=== PATIENT | male | born 1935 | race Caucasian/White ===

== ENCOUNTER 2016-10-27 07:31 | Day surgery (SDC) | payer MEDICARE, BC ==
[~2016-10-27] VITALS: Ht 182.9 cm; Wt 74.8 kg
[~2016-10-27 07:31] MED LIST: AMLO10TA2 PO; ASPI81CH CHEW; HYDR50TA15 PO; LACT PO; LEVA500T PO; LEVEMIR SQ; METO25TA3 PO; PANT40TA3 PO; PLAV75TA29 PO; PRIM50 PO; RENATAB6 PO; SEVEL800 PO; VANC1000P IV
[2016-10-27] MEDS ORDERED: SODIUM BICARBONATE 100 MEQ in D5W 1000 ML IV SCH (08:15)
[2016-10-27] MEDS ORDERED: SODIUM CHLORIDE 0.9% FLUSH 5 ML FLUSH IV FLUSH PRN (08:15)
[2016-10-27 08:30] VITALS: BP 148/67; PULSE 83; RESP 18; TEMP 98.3; O2SAT 93
[2016-10-27 08:40] LABS: BASOPHIL % 0.4 % (0.0-2.0); EOSINOPHIL # 0.2 TH/MM3 (0-0.4); EOSINOPHIL % 2.3 % (0.0-4.0); HEMATOCRIT 26.9 % (39.0-51.0); HEMO FLAGS DIFF FINAL; LYMPH % 5.9 % (9.0-44.0); LYMPHOCYTE # 0.6 TH/MM3 (1.0-4.8); MEAN CELL VOLUME 91.2 FL (80.0-100.0); MEAN CORPUSCULAR HEMOGLOBIN 30.9 PG (27.0-34.0); MEAN CORPUSCULAR HGB CONC 33.9 % (32.0-36.0); MONO % 5.9 % (0.0-8.0); NEUT % 85.5 % (16.0-70.0); PLATELET COUNT 256 TH/MM3 (150-450); RED BLOOD COUNT 2.95 MIL/MM3 (4.50-5.90); RED CELL DISTRIBUTION WIDTH 16.7 % (11.6-17.2); WHITE BLOOD COUNT 10.6 TH/MM3 (4.0-11.0)
[2016-10-27] MEDS ORDERED: NOVOLOGP2 SQ (08:56)
[2016-10-27 08:57] LABS: BICARBONATE 30.8 MEQ/L (21.0-32.0); POTASSIUM 4.1 MEQ/L (3.5-5.1)
[2016-10-27] MEDS ORDERED: HYDR25TA35 PO (08:57)
[2016-10-27] MEDS ORDERED: SODIUM CHLORIDE 0.9% FLUSH 5 ML FLUSH IV FLUSH SCH (09:00)
[2016-10-27 09:15] LABS: APTT (PATIENT) 24.9 SEC (24.3-30.1); INTERNATIONAL NORMALIZED RATIO 1.1 RATIO; PROTHROMBIN TIME - PATIENT 11.9 SEC (9.8-11.6)
[2016-10-27] MEDS ORDERED: IOHEXOL 350 MG/ML 100 ML BTL (for Cath Lab) OTHER ONE (10:52)
[2016-10-27] MEDS ORDERED: MIDAZOLAM HCL 2 MG/2 ML VIAL ONE ×2 (11:07→11:54)
[2016-10-27] MEDS ORDERED: HEPARIN-NS/PF INJ 500 ML ONE (11:07)
[2016-10-27] MEDS ORDERED: NITROGLYCERIN INJ 5 ML ONE ×2 (11:45→11:54)
[2016-10-27] MEDS ORDERED: HEPARIN SODIUM - IV 10,000 UNITS/10 ML VIAL ONE (11:45)
[2016-10-27] MEDS ORDERED: VERAPAMIL HCL 5 MG/2 ML VIAL ONE (11:54)
[2016-10-27] MEDS ORDERED: PROTAMINE SULFATE 50 MG/5 ML VIAL ONE (12:29)
[2016-10-27] MEDS ORDERED: LIDOCAINE HCL 1% PF 30 ML VIAL ONE (12:36)
--- NOTE | 2016-10-27 12:49 | HHI.PR ---
Immediate Post Op Note Procedure Date: Oct 27, 2016 Pre Op Diagnosis: (1) Diabetic infection of right foot right heel gangrene. Post Op Diagnosis: (1) Diabetic infection of right foot Surgeon: Myles Isbell Piping Drafter(s): walter Procedure: NA Findings: Right popliteal artery high grade stenosis with single vessel peroneal artery runoff. Additional Information: NA Complications: None Specimen(s) removed: NA Estimated blood loss: minimal Anesthesia: Other (moderate sedation.) Drains: None Fluids: NS and NAHCO3 IVF (ns) Tourniquet time (min at mmHg) NA Patient to: PACU Patient Condition: Good Implant/Devices: Other Date/Time of Procedure: Other Myles Isbell DO Oct 27, 2016 12:49
--- NOTE | 2016-10-27 18:04 | MA ---
cc: MARTIR MENDOZA DATE 10/27/2016 PREOPERATIVE DIAGNOSIS Critical limb ischemia left lower extremity with heel ulceration. POSTOPERATIVE DIAGNOSIS Critical limb ischemia left lower extremity with heel ulceration. PROCEDURES 1. Aortogram. 2. Pelvic oblique arteriogram. 3. Selective right lower extremity arteriogram. 4. Duplex ultrasound for access. 5. Balloon angioplasty of right popliteal artery lesion high-grade stenosis with a nonhealing wound. SEDATION Moderate. IV FLUIDS 300 mL of crystalloid ESTIMATED BLOOD LOSS Minimal URINE OUTPUT Not calculated. COMPLICATIONS None. DISPOSITION Docu. PROCEDURE The patient's bilateral groins were prepped and draped in a sterile fashion. I got access to the left common femoral artery using duplex ultrasound. Using Seldinger technique I placed a 4-[place] micropuncture catheter and then I exchanged using a 5-[place] sheath. I advanced an Omni flush catheter over a stiff angled Glidewire into the abdominal aorta. I shot an AP aortogram. I pulled my catheter down to the distal abdominal aorta. I shot pelvic oblique arteriograms. I selected out the right lower extremity external iliac artery and shot a selective right lower extremity arteriogram. My findings were that the abdominal aorta was widely patent. The bilateral renal arteries were widely patent. The left common internal and external iliac arteries were patent. The left common femoral, proximal SFA and profunda femoral arteries were patent. The right common internal, external arteries were widely patent. The right common femoral artery was patent. The right profunda femoral artery was patent and the right superficial femoral artery had some mild multi focal disease distally. The patient had a high-grade right popliteal artery calcified popliteal artery lesion. This was a short segment lesion at the knee joint. Below the level of the knee was single-vessel runoff through the peroneal artery that reconstituted the distal posterior tibial artery and dorsalis pedis artery. The ___ was exchanged for a 6-[place] Citizen 45 cm Destination sheath over an angled Glidewire and across the right popliteal lesion with a Quick-Cross catheter and stiff angled glide wire. I then exchanged for a 0.14 Viper wire and then used a 1.5 tip CSI atherectomy device to perform the atherectomy across the right popliteal artery. I performed balloon angioplasty with a 4 cm x 6 mm balloon. Afterwards there was improved blood flow across right popliteal artery through a single-vessel runoff through the peroneal artery. During the period of the atherectomy I did inject approximately a total of 700 mcg of nitroglycerine. After performing the atherectomy and balloon angioplasty, there was complete resolution of the right popliteal artery lesion. There was still single-vessel runoff through the peroneal artery. We then exchanged for a 6-[place] Citizen short sheath and once the ACT was less than 200 we pulled the sheath out the left groin. The patient tolerated the procedure well. DO LAMAR Silva/SUSANNA /12:27 PM /5:38 PM
== END 2016-10-27 18:36 | disposition home or self-care (01) ==
LOC: HDOC 07:31 → HDIC 07:32 → HDOC 18:36
PROVIDERS: ATTEND Surgery
DX: I70.234 Atherosclerosis of native arteries of right leg with ulceration of heel and midfoot (principal); I12.9 Hypertensive chronic kidney disease with stage 1 through stage 4 chronic kidney disease, or unspecified chronic kidney disease; N18.9 Chronic kidney disease, unspecified; E11.9 Type 2 diabetes mellitus without complications; Z79.4 Long term (current) use of insulin
CPT/HCPCS: 37225; 75625; 75710; 80048; 85002; 85025; 85347; 85610; 85730; C1714; C1725; C1751; C1769; C1887; C1893; J1644; J2250; J2720; J3010; Q9967

== ENCOUNTER 2016-10-30 16:23 | Inpatient (IN) | payer MEDICARE, BC ==
[~2016-10-30] VITALS: Ht 182.9 cm; Wt 75.1 kg
[~2016-10-30 16:23] MED LIST changes: +HYDR25TA35 PO; -HYDR50TA15 PO; -LACT PO; -LEVA500T PO; +NOVOLOGP2 SQ; -PANT40TA3 PO; -RENATAB6 PO; -SEVEL800 PO; -VANC1000P IV
[2016-11-03] MEDS: SODIUM CHLORID 0.9% 500 ML IV SCH (08:15)
[2016-11-03] MEDS ORDERED: LACTATED RINGER'S 1000 ML IV SCH (08:15)
[2016-11-03] MEDS ORDERED: METOPROLOL TARTRATE 25 MG TAB PO PRN (08:15)
[2016-11-03] MEDS ORDERED: INSULIN HUMAN REGULAR 1,000 UNITS/10 ML VIAL SQ PRN (08:15)
[2016-11-03] MEDS ORDERED: POTA10CA PO (08:24)
[2016-11-03] MEDS ORDERED: MULT1TAB84 PO (08:24)
[2016-11-03] MEDS ORDERED: BUME1TAB26 PO (08:24)
[2016-11-03] MEDS ORDERED: PANT40TA3 PO (08:24)
[2016-11-03] MEDS ORDERED: SEVEL800 PO (08:24)
[2016-11-03] MEDS ORDERED: VITA10007 PO (08:24)
[2016-11-03] MEDS ORDERED: INFALIQ PO (08:24)
[2016-11-03] MEDS ORDERED: NEPHTAB3 PO (08:25)
[2016-11-03 08:29] LABS: AUTOMATED NEUTROPHIL # 14.9 TH/MM3 (1.8-7.7); BASOPHIL % 0.3 % (0.0-2.0); EOSINOPHIL # 0.1 TH/MM3 (0-0.4); EOSINOPHIL % 0.6 % (0.0-4.0); HEMATOCRIT 22.9 % (39.0-51.0); HEMO FLAGS DIFF FINAL; LYMPH % 2.6 % (9.0-44.0); LYMPHOCYTE # 0.4 TH/MM3 (1.0-4.8); MEAN CELL VOLUME 89.3 FL (80.0-100.0); MEAN CORPUSCULAR HGB CONC 33.5 % (32.0-36.0); MONO % 5.9 % (0.0-8.0); NEUT % 90.6 % (16.0-70.0); PLATELET COUNT 272 TH/MM3 (150-450); RED BLOOD COUNT 2.57 MIL/MM3 (4.50-5.90); RED CELL DISTRIBUTION WIDTH 16.8 % (11.6-17.2); WHITE BLOOD COUNT 16.4 TH/MM3 (4.0-11.0)
[2016-11-03 08:34] VITALS: BP 144/68; PULSE 89; RESP 24; TEMP 99.8; O2SAT 93
[2016-11-03] MEDS ORDERED: BACT800T5 PO (08:43)
[2016-11-03] MEDS ORDERED: BENA25TA3 PO (08:44)
[2016-11-03 08:50] LABS: ALT (GPT) 17 U/L (12-78); ANION GAP 10 MEQ/L (5-15); AST (GOT) 9 U/L (15-37); BICARBONATE 30.3 MEQ/L (21.0-32.0); BLOOD UREA NITROGEN 36 MG/DL (7-18); CHLORIDE 100 MEQ/L (98-107); GLOMERULAR FILTRATION RATE 8 ML/MIN (>89); POTASSIUM 3.6 MEQ/L (3.5-5.1); SODIUM (NA) 140 MEQ/L (136-145)
[2016-11-03 08:53] LABS: ALKALINE PHOSPHATASE 66 U/L (45-117); TOTAL BILIRUBIN ADULT 0.4 MG/DL (0.2-1.0)
[2016-11-03] MEDS ORDERED: FUROSEMIDE 20 MG/2 ML VIAL IV ONE (09:30)
--- NOTE | 2016-11-03 09:50 | RADRPT ---
EXAM DATE/TIME: 11/03/2016 08:06 [place] COMPARISON: CHEST SINGLE AP, October 04, 2016, 3:48. INDICATIONS : Evaluate for pneumonia, pneumothorax or communicable disease. Pre-op for above the knee amputation. MEDICAL HISTORY : Hypertension. Congestive heart failure. Renal disease, end stage. Stroke. Diabetes Mellitus. Smok er. Prostate cancer. SURGICAL HISTORY : None. ENCOUNTER: Initial ACUITY: 1 day PAIN SCORE: 0/10 LOCATION: Bilateral chest FINDINGS: A single view of the chest demonstrates interval worsening in the radiographic appearance of the ches t with prominent interstitial markings and possible developing bilateral pleural effusions. Heart siz e is prominent and the lungs are hypoinflated. Atherosclerotic calcification and uncoiling of the aor tic arch. Osseous structures are intact. CONCLUSION: Spectrum of findings characteristic of developing CHF since the September 2016 exam. Milad Tamez MD on November 03, 2016 at 9:47 Board Certified Radiologist. This report was verified electronically.
[2016-11-03] MEDS ORDERED: BUPIVACAINE/EPINEPHRINE 0.5% 50 ML VIAL ONE (09:55)
[2016-11-03] MEDS ORDERED: ceFAZolin INJ 1,000 MG VIAL ONE (09:55)
[2016-11-03] MEDS ORDERED: THROMBIN (TOPICAL) 5,000 UNIT VIAL ONE (09:56)
[2016-11-03] MEDS ORDERED: KETAMINE HCL 500 MG/5 ML VIAL ONE (10:16)
[2016-11-03] MEDS ORDERED: MIDAZOLAM HCL 2 MG/2 ML VIAL ONE ×2 (10:23→12:15)
[2016-11-03] MEDS ORDERED: FAMOTIDINE 20 MG/2 ML VIAL ONE (10:23)
--- NOTE | 2016-11-03 10:36 | PD.VS.PN ---
Pre-operative Note Pre-operative diagnosis: Ishemic tissue changes to left BKA stump. C. diff Colitis. Planned procedure: left bka revision vs AKA. Labs: Laboratory Tests Test 11/03/16 11/03/16 11/03/16 08:04 09:24 09:30 White Blood Count 16.4 Red Blood Count 2.57 Hemoglobin 7.7 Hematocrit 22.9 Mean Corpuscular Volume 89.3 Mean Corpuscular Hemoglobin 30.0 Mean Corpuscular Hemoglobin 33.5 Concent Red Cell Distribution Width 16.8 Platelet Count 272 Mean Platelet Volume 8.5 Neutrophils (%) (Auto) 90.6 Lymphocytes (%) (Auto) 2.6 Monocytes (%) (Auto) 5.9 Eosinophils (%) (Auto) 0.6 Basophils (%) (Auto) 0.3 Neutrophils # (Auto) 14.9 Lymphocytes # (Auto) 0.4 Monocytes # (Auto) 1.0 Eosinophils # (Auto) 0.1 Basophils # (Auto) 0.0 CBC Comment DIFF FINAL Differential Comment Sodium Level 140 Potassium Level 3.6 Chloride Level 100 Carbon Dioxide Level 30.3 Anion Gap 10 Blood Urea Nitrogen 36 Creatinine 6.44 Estimat Glomerular Filtration 8 Rate Random Glucose 153 Calcium Level 8.8 Total Bilirubin 0.4 Aspartate Amino Transf 9 (AST/SGOT) Alanine Aminotransferase 17 (ALT/SGPT) Alkaline Phosphatase 66 Total Protein 6.4 Albumin 2.7 Blood Type A POSITIVE A POSITIVE A POSITIVE Antibody Screen NEGATIVE Blood Bank Comment Crossmatch Leukocyte-Reduced Red Blood Cells Blood: Type and cross 2 units prbcs Imaging: Last 48 hours Impressions Chest X-Ray 11/03/16 0000 Signed Impressions: Service Date/Time: Thursday, November 03, 2016 08:06 - CONCLUSION: Spectrum of findings characteristic of developing CHF since the September 2016 exam. Milad Tamez MD Post-operative destination: IM with Dr. Lagunas, Patient with multiple medical problems including PRE-hospitalization diagnosed C.Diff. Operative site marked: Yes Consent: Informed consent has been obtained from Cullen Rai Jr. I have explained the procedure in detail and discussed the risks, benefits, and potential complications. All questions have been answered. Myles Isbell DO Nov 03, 2016 10:24
[2016-11-03] MEDS ORDERED: VANCOMYCIN HCL 1000 MG VIAL ONE (11:11)
[2016-11-03] MEDS ORDERED: VANCOMYCIN HCL 1000 MG VIAL OTHER ONE (11:15)
[2016-11-03] MEDS ORDERED: BUPIVACAINE HCL PF 0.5% 30 ML VIAL NB ONE (11:30)
[2016-11-03] MEDS ORDERED: SODIUM CHLOR 0.9% 250 ML INJ 250 ML IV ONE (12:00)
[2016-11-03] MEDS ORDERED: PROPOFOL 200 MG/20 ML AMP IV ONE (12:00)
[2016-11-03] MEDS ORDERED: SODIUM CHLORID 0.9% 500 ML INJ 500 ML IV ONE (12:00)
[2016-11-03] MEDS ORDERED: LACTATED RINGER'S 1000 ML INJ IV SCH (13:00)
[2016-11-03] MEDS ORDERED: MORPHINE SULFATE 4 MG/ML INJ IV PRN ×2 (13:00)
[2016-11-03] MEDS ORDERED: DO NOT ADM ANY ANTICOAGULANT DRUGS XX PRN (13:00)
[2016-11-03] MEDS ORDERED: MAGNESIUM SULFATE 1 GM/100 ML IV PRN (13:00)
[2016-11-03] MEDS ORDERED: POTASSIUM PHOSPHATE 21 MMOL/NS 250 ML IV PRN ×2 (13:00)
[2016-11-03] MEDS ORDERED: POTASSIUM CHLOR 20 MEQ 100 ML x 2 BAGS IV PRN (13:00)
[2016-11-03] MEDS ORDERED: POTASSIUM CHLOR 20 MEQ/100 ML x 1 BAG IV PRN (13:00)
[2016-11-03] MEDS ORDERED: ONDANSETRON HCL 4 MG/2 ML VIAL IV PUSH PRN (13:00)
[2016-11-03] MEDS ORDERED: ACETAMINOPHEN/HYDROcodone 325 MG/5 MG TAB PO PRN (13:00)
[2016-11-03] MEDS ORDERED: ACETAMINOPHEN 325 MG TAB PO PRN ×2 (13:30→19:15)
[2016-11-03] MEDS ORDERED: oxyCODONE/ACETAMINOPHEN 5 MG/325 MG TAB PO PRN (13:30)
[2016-11-03] MEDS ORDERED: BISACODYL 10 MG SUPP PR PRN (13:30)
[2016-11-03] MEDS ORDERED: NALOXONE HCL 0.4 MG/ML AMP IV PRN (13:30)
[2016-11-03] MEDS ORDERED: HYDROmorphone HCL PF 1 MG/ML VIAL IV PUSH PRN (13:30)
[2016-11-03] MEDS ORDERED: SODIUM CHLORIDE 0.9% FLUSH 5 ML FLUSH FLUSH PRN (13:30)
[2016-11-03] MEDS ORDERED: ONDANSETRON HCL 4 MG/2 ML VIAL IVP PRN (13:30)
[2016-11-03] MEDS ORDERED: MAGNESIUM HYDROXIDE SUSP 30 ML CUP PO PRN (13:30)
[2016-11-03 16:00] VITALS: BP 161/68; PULSE 84; RESP 19; TEMP 97.4; O2SAT 90
--- NOTE | 2016-11-03 18:18 | HHI.PR ---
Immediate Post Op Note Procedure Date: Nov 03, 2016 Pre Op Diagnosis: (1) PVD (peripheral vascular disease) Post Op Diagnosis: (1) PVD (peripheral vascular disease) Surgeon: Myles Isbell Winch Derrick Operator(s): Javier Berkowitz Procedure: Left AKA Findings: Clean tissue above the knee with negative gram stain of fluid at bone marrow level. Additional Information: C diff toxin from stool sample from nursing facility 10/31/2016. Complications: none Specimen(s) removed: left residual leg. Estimated blood loss: 50 cc Anesthesia: MAC, Regional Block, Local Drains: None Fluids: 500 cc IVF (250), PRBC (250) Patient to: PACU Patient Condition: Good Implant/Devices: SEE IMPLANT LOG (if applicable) (NA) Date/Time of Procedure: SEE SURGICAL CARE RECORD Myles Isbell DO Nov 03, 2016 18:18
[2016-11-03] MEDS ORDERED: GLUCAGON 1 MG/ML VIAL OTHER PRN (18:45)
[2016-11-03] MEDS ORDERED: DEXTROSE 50% IN WATER 50 ML VIAL(D50) IV PUSH PRN (18:45)
[2016-11-03] MEDS ORDERED: SODIUM CHLOR 0.9% 1000 ML INJ 1,000 ML IV PRN ×3 (19:14)
[2016-11-03] MEDS ORDERED: HEPARIN SODIUM - IV 10,000 UNITS/10 ML VIAL IVF PRN (19:15)
[2016-11-03] MEDS ORDERED: ONDANSETRON HCL 4 MG/2 ML VIAL IV PRN (19:15)
[2016-11-03] MEDS ORDERED: HEPARIN SODIUM - IV 10,000 UNITS/10 ML VIAL PRN (19:15)
[2016-11-03] MEDS ORDERED: NITROGLYCERIN 0.4 MG SL 25 TABS/BTL SL PRN (19:15)
[2016-11-03] MEDS ORDERED: ALBUMIN HUMAN 25% 25 GM/100 ML BAGP IV PRN (19:15)
[2016-11-03] MEDS ORDERED: cloNIDine HCL 0.1 MG TAB PO PRN (19:15)
[2016-11-03] MEDS ORDERED: MANNITOL 12.5 GM/50 ML VIAL IV PRN (19:15)
[2016-11-03] MEDS ORDERED: GELATIN 12 MM/7 MM FOAM TOP PRN (19:15)
[2016-11-03] MEDS ORDERED: SODIUM CHLORIDE 0.9% FLUSH 5 ML FLUSH IVF PRN (19:15)
[2016-11-03] MEDS ORDERED: GENTAMICIN SULFATE (DIALYSIS USE ONLY) 20 MG/2 ML VIAL IV PRN (19:15)
[2016-11-03] MEDS ORDERED: diphenhydrAMINE HCL 25 MG CAP PO PRN (19:15)
--- NOTE | 2016-11-03 19:16 | HHI.HP ---
[facility]Staff Admission Diagnosis C. difficile, BKA stump redo Diagnoses: Chief Complaint: C. 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 Recently discharged from [facility] 10/08/16, post left BKA. He went to [facility]. His BKA wound has not healed well and developed cellulitis and some necrosis. He was started on Bactrim. He developed diarrhea a week ago and now he is positive for C. difficile. Patient today status post left AKA done by Dr. Isbell. Patient seen today. Daughter at the bedside. Reports he is doing well. On 2 L nasal cannula. Reports he started having diarrhea since last week. Right heel wound with necrotic tissue, improved according to daughter. Denies pain and discomfort. Denies SOB/ dyspnea. Denies chest pain, palpitations, headaches, dizziness. Denies fevers, chills, n/v. Denies abdominal cramping, bloating. Chest x-ray showed spectral findings characteristic of developing CHF since the September 2016 exam. Labs reviewed. WBC 16.4, H&H 7.7/22.9. B UN 36, creatinine 6.44 - end-stage renal disease on hemodialysis. Review of Systems Other Negative except for what is noted on history of present illness. Past Family Social History Past Medical History End-stage renal disease Insulin-dependent diabetes mellitus Peripheral vascular disease Ischemic left foot History of prostate cancer History of CVA in 1987 Multiple TIAs Past Surgical History Left BKA 09/16/16 AV fistula Right eye cataract surgery Tonsillectomy Allergies: Coded Allergies: No Known Allergies (Unverified , 11/03/16) Active Ordered Medications Current Medications Medications (Trade) Dose Ordered Sig/Gavin Route Start Time Stop Time Status Last Admin (NS 500 ml Inj) 500 ml @ 30 mls/hr [id number] IV 11/03/16 08:15 11/04/16 08:14 Miscellaneous Information ALL NURSING DEPARTME... UNSCH PRN XX 11/03/16 13:00 11/04/16 12:59 Lactated Ringer's 1,000 ml @ 125 mls/hr Q8H IV 11/03/16 13:00 11/03/16 20:59 Potassium Chloride 100 ml @ 50 mls/hr Q2H PRN IV 11/03/16 13:00 Potassium Chloride 100 ml @ 50 mls/hr UNSCH PRN IV 11/03/16 13:00 Potassium Phosphate 21 mmol/ Sodium Chloride 257 ml @ 41.7 mls/hr UNSCH PRN IV 11/03/16 13:00 (Magnesium Sulfate 1 Gm Premix) 200 ml @ 100 mls/hr UNSCH PRN IV 11/03/16 13:00 (Zofran Inj) 4 mg Q6H PRN IV PUSH 11/03/16 13:00 ([place] 5-325 Mg) 1 tab Q4H PRN PO 11/03/16 13:00 (Roxicodone) 7.5 mg Q4H PRN PO 11/03/16 13:00 (Morphine Inj) 2 mg Q4H PRN IV 11/03/16 13:00 (Morphine Inj) 4 mg Q1H PRN IV 11/03/16 13:00 (NS Flush) 2 ml UNSCH PRN FLUSH 11/03/16 13:30 (NS Flush) 2 ml BID FLUSH 11/03/16 21:00 (Tylenol) 650 mg Q4H PRN PO 11/03/16 13:30 (Zofran Inj) 4 mg Q6H PRN IVP 11/03/16 13:30 (Dulcolax Supp) 10 mg DAILY PRN [place] 11/03/16 13:30 (Milk Of Magnesia Liq) 30 ml Q12H PRN PO 11/03/16 13:30 (Narcan Inj) 0.4 mg UNSCH PRN IV 2/6/17 13:30 (Percocet 5-325 Mg) 1 tab Q6H PRN PO 11/03/16 13:30 (Dilaudid Pf Inj) 0.5 mg Q4H PRN IV PUSH 11/03/16 13:30 Family History COPD Social History Quit smoking in 1987. Denies alcohol use. Denies illicit drug use. Physical Exam Vital Signs Vital Signs Date Time Temp Pulse Resp B/P Pulse Ox O2 Delivery O2 Flow Rate FiO2 11/03/16 16:00 97.4 84 19 161/68 90 11/03/16 15:34 98.9 80 13 140/59 99 Nasal Cannula 2 11/03/16 15:00 78 14 138/67 97 Nasal Cannula 2 11/03/16 14:00 76 12 144/66 99 Nasal Cannula 2 11/03/16 13:30 72 19 134/63 97 Nasal Cannula 2 11/03/16 13:15 73 20 127/56 97 Nasal Cannula 2 11/03/16 13:00 72 19 125/53 98 Nasal Cannula 2 11/03/16 12:45 71 17 121/57 97 Nasal Cannula 2 11/03/16 12:30 70 16 115/53 99 Nasal Cannula 2 11/03/16 12:25 99.2 69 15 111/53 99 Simple Mask 6 11/03/16 08:34 99.8 89 24 144/68 93 Physical Exam GENERAL: This is a thinly appearing, well-developed patient, in no apparent distress. SKIN: No rashes, ecchymoses or lesions. Cool and dry. HEAD: Atraumatic. Normocephalic. No temporal or scalp tenderness. EYES: Pupils equal round and reactive. Extraocular motions intact. No scleral icterus. No injection or drainage. ENT: Nose without bleeding. Throat without erythema. Uvula midline. Airway patent. NECK: Trachea midline. No JVD or lymphadenopathy. Supple, nontender, no meningeal signs. CARDIOVASCULAR: Regular rate and rhythm without murmurs, gallops, or rubs. RESPIRATORY: Diminished bases. No wheezes, rales, or rhonchi. On 2 L nasal cannula. GASTROINTESTINAL: Abdomen soft, non-tender, nondistended. No hepato-splenomegaly , or palpable masses. No guarding. MUSCULOSKELETAL: Extremities without clubbing, cyanosis, or edema. Left AKA with dressing CDI, right heel wound with necrotic tissue surrounding the area. NEUROLOGICAL: Awake and alert. Forgetful. Motor and sensory grossly within normal limits. Normal speech. Laboratory Laboratory Tests Test 11/03/16 11/03/16 11/03/16 08:04 09:24 09:30 White Blood Count 16.4 Red Blood Count 2.57 Hemoglobin 7.7 Hematocrit 22.9 Mean Corpuscular Volume 89.3 Mean Corpuscular Hemoglobin 30.0 Mean Corpuscular Hemoglobin 33.5 Concent Red Cell Distribution Width 16.8 Platelet Count 272 Mean Platelet Volume 8.5 Neutrophils (%) (Auto) 90.6 Lymphocytes (%) (Auto) 2.6 Monocytes (%) (Auto) 5.9 Eosinophils (%) (Auto) 0.6 Basophils (%) (Auto) 0.3 Neutrophils # (Auto) 14.9 Lymphocytes # (Auto) 0.4 Monocytes # (Auto) 1.0 Eosinophils # (Auto) 0.1 Basophils # (Auto) 0.0 CBC Comment DIFF FINAL Differential Comment Sodium Level 140 Potassium Level 3.6 Chloride Level 100 Carbon Dioxide Level 30.3 Anion Gap 10 Blood Urea Nitrogen 36 Creatinine 6.44 Estimat Glomerular Filtration 8 Rate Random Glucose 153 Calcium Level 8.8 Total Bilirubin 0.4 Aspartate Amino Transf 9 (AST/SGOT) Alanine Aminotransferase 17 (ALT/SGPT) Alkaline Phosphatase 66 Total Protein 6.4 Albumin 2.7 Blood Type A POSITIVE A POSITIVE A POSITIVE Antibody Screen NEGATIVE Blood Bank Comment Crossmatch Leukocyte-Reduced Red Blood Cells Date/Time Procedure Status Source Growth 11/03/16 11:33 Gram Stain - Final Resulted Wound Other 11/03/16 11:33 Wound Culture Resulted Wound Other Pending 11/03/16 11:33 Fungal Smear - Final Resulted Wound Other NO FUNGAL ELEMENTS SEEN. 11/03/16 11:33 Fungal Culture Resulted Wound Other Pending 11/03/16 11:33 Acid Fast Stain Received Wound Other Pending 11/03/16 11:33 Mycobacterial Culture Received Wound Other Pending Result Diagram: 11/03/16 0804 11/03/16 08 Assessment and Plan Problem List: (1) GERD (gastroesophageal reflux disease) ICD Code: K21.9 Status: Chronic (2) ESRD (end stage renal disease) ICD Code: N18.6 Status: Chronic (3) Diabetes mellitus ICD Code: E11.9 Status: Chronic (4) Impaired mobility and activities of daily living ICD Code: Z74.09 Status: Acute (5) Diabetic infection of right foot ICD Code: E11.69 Status: Acute (6) PVD (peripheral vascular disease) ICD Code: I73.9 Status: Chronic (7) Status post above knee amputation of left lower extremity ICD Code: Z89.612 Status: Acute (8) HTN (hypertension) ICD Code: I10 Status: Chronic (9) Anemia ICD Code: D64.9 Status: Acute Assessment and Plan Patient is an 80-year-old male with primary medical history of insulin- dependent diabetes, end-stage renal disease on hemodialysis, HTN, 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 Recently discharged from [facility] 10/08/16, post left BKA. He went to [facility]. His BKA wound has not healed well and developed cellulitis and some necrosis. Status post left AKA - done by Dr. Isbell - Patient was given vancomycin IV and Ancef - Started on Bactrim 3 days ago. Continue Bactrim until dose completed. - Wound care. C. difficile - WBC 16.1 - Start vancomycin 125 mg by mouth 4 times a day 14 days - Start Lactinex 3 times a day Developing CHF on chest x-ray - continue O2 nasal cannula - Continue Bumex - Arrange for hemodialysis End-stage renal disease on hemodialysis - arrange for hemodialysis - Nephrology consult to Dr. Malone DM - insulin-dependent - Hold off on prandial insulin. Will do insulin sliding scale for now - Restart Levemir tomorrow - Monitor Accu-Cheks. Monitor for hypoglycemia. Anemia - possibly postop related H&H 7.7/22.9 - Check CBC tomorrow - If <7 or pt. asymptomatic, may benefit with blood transfusion with HD. Right heel wound - continue pressure-relief, wound care. - Continue supplements Generalized weakness - will Consult rehabilitation - PT OT to evaluate DVT prop SCD RLE Written by Seun Klein, acting as scribe for Dr. Lagunas on 11/03/16 at 18:35. The documentation accurately reflects the work performed [id number] by me on at 18:35. Code Status Full Code Discussed Condition With patient, daughter, Dr. Isbell Physician Certification 2 Midnight Certification Type: Admission for Inpatient Services Order for Inpatient Services The services are ordered in accordance with Medicare regulations or non- Medicare payer requirements, as applicable. In the case of services not specified as inpatient-only, they are appropriately provided as inpatient services in accordance with the 2-midnight benchmark. Estimated LOS (days): 3 days is the estimated time the patient will need to remain in the hospital, assuming treatment plan goals are met and no additional complications. Post-Hospital Plan: Inpatient Rehab Seun Spencer Nov 03, 2016 19:16 Ivon Lagunas DO Nov 03, 2016 23:49
[2016-11-03] MEDS ORDERED: PILL SPLITTER OTHER PRN (19:30)
[2016-11-03 20:00] VITALS: BP 166/74; PULSE 82; RESP 17; TEMP 97.2; O2SAT 100
[2016-11-03] MEDS: hydrALAZINE HCL 25 MG TAB PO SCH (20:49)
[2016-11-03] MEDS: VANCOMYCIN 500 MG VIAL (FOR ORAL USE ONLY) PO SCH (20:49)
[2016-11-03] MEDS: BUMETANIDE 1 MG TAB PO SCH (20:49)
[2016-11-03] MEDS: SODIUM CHLORIDE 0.9% FLUSH 5 ML FLUSH FLUSH SCH (20:49)
[2016-11-03] MEDS: METOPROLOL TARTRATE 25 MG TAB PO SCH (20:49)
[2016-11-03] MEDS: INSULIN ASPART SUPPLEMENTAL SCALE SQ SCH (20:54)
--- NOTE | 2016-11-03 22:12 | MB ---
cc: MARIANNE TSAI MD DATE OF CONSULTATION 11/03/2016 REASON FOR CONSULTATION End-stage renal disease on hemodialysis for management. HISTORY OF PRESENT ILLNESS This is an 81-year-old male with past medical history of hypertension, ischemic heart disease, peripheral vascular disease, end-stage renal disease on hemodialysis three times per week, diabetes mellitus, history of cerebrovascular accident, chronic anemia who was admitted with peripheral vascular disease and ischemia of the left BKA stump. I was called to see the patient for the management of dialysis. The patient has been on hemodialysis Thursday, and Thursday. He had previously below-knee amputation done and the stump was not healing. Vascular Surgery was following the patient and then readmitted the patient because of ischemic tissue of the left below-knee amputation. The patient underwent the surgery and he had left above-knee amputation. The patient has been on hemodialysis Thursday, and Thursday and according to him he had his dialysis done on Thursday. He denies any shortness of breath. Currently he is with nasal cannula. He has no nausea or vomiting, no abdominal pain. PAST MEDICAL HISTORY 1. Hypertension. 2. Diabetes mellitus. 3. Peripheral vascular disease. 4. Ischemic heart disease. 5. Chronic anemia. 6. History of cerebrovascular accident. 7. End-stage renal disease on hemodialysis three times per week. PAST SURGICAL HISTORY 1. Left arm A-V fistula surgery. 2. Cataract surgery. 3. Tonsillectomy. 4. Multiple angiograms. 5. Angioplasty. 6. Left below-knee amputation and now above-knee amputation. REVIEW OF SYSTEMS Denies any history of nausea or vomiting. No shortness of breath, no chest pain. No palpitation. No abdominal pain. SOCIAL HISTORY The patient has past history of smoking. He stopped in 1987. Occasionally drinks alcoholic beverages. FAMILY HISTORY Noncontributory. ALLERGIES No known drug allergies. MEDICATIONS Currently he is on the following medications - 1. Hydralazine 25 mg b.i.d. 1. Norvasc 10 mg once a day. 2. Vitamin C 1000 mg once a day. 3. Insulin detemir. 4. Theragran 1 tablet daily. 5. Protonix 40 mg once a day. 6. Bactrim 1 tablet daily. 7. Potassium chloride 20 mEq once a day. 8. Bumex 1 mg q.h.s. 9. Vancomycin 250 mg q.i.d. 10. Metoprolol 12.5 mg q. 12 hours. 11. Lactinex 1 tablet t.i.d. 12. Primidone 50 mg t.i.d. 13. Renvela 800 mg t.i.d.. 14. Regular insulin sliding scale. 15. Oxycodone as needed PHYSICAL EXAMINATION GENERAL: The patient is awake, alert. He is not in acute distress. VITAL SIGNS: Blood pressure 161/68, temperature 97.4, oxygen saturation 90-99%. HEENT: Pupils equal, reacting to light. Nonicteric sclerae. Conjunctivae pale. NECK: Supple. JVD is not elevated. LUNGS: The patient has bilateral decreased air entry with basilar rales and scattered wheezing. HEART: S1, S2 regular rhythm. ABDOMEN: Distended, soft, lax. There is no tenderness. Bowel sounds positive. EXTREMITIES: There is left above-knee amputation. The right foot is covered with a dressing. The left arm has an A-V fistula. INVESTIGATIONS WBC count is 16.4, hemoglobin 7.7, platelet count of 272, neutrophils 90.6%. Sodium 140, potassium 3.6, chloride 100, bicarb 30.3, BUN 36, creatinine 6.4. INR is 1.1. Urinalysis showing protein of 100. CHEST X-RAY Done and shows some increased vascular marking. ASSESSMENT AND PLAN 1. Peripheral vascular disease post above-knee amputation. 2. End-stage renal disease on hemodialysis. 3. Chronic anemia. 4. History of cerebrovascular accident. The patient had the surgery done and potassium is normal. He has some fluid overload but his saturation has so far stabilized. His regular hemodialysis day is tomorrow. I will give him IV fluid and arrange for his hemodialysis to be done tomorrow. His hemoglobin is low. We will give the Epogen and follow the hemoglobin. If it drops further, he will need blood transfusion. Thank you for the consultation. I will follow the patient while he is in the hospital. MD TC Mullins/EDWIGE /7:11 PM /9:57 PM
[2016-11-04] VITALS: BP 151/69; PULSE 75; RESP 17; TEMP 100.2; O2SAT 97
[2016-11-04] MEDS: SODIUM CHLORID 0.9% 500 ML IV SCH (00:55)
[2016-11-04 04:59] LABS: AUTOMATED NEUTROPHIL # 14.9 TH/MM3 (1.8-7.7); BASOPHIL % 0.3 % (0.0-2.0); EOSINOPHIL # 0.1 TH/MM3 (0-0.4); EOSINOPHIL % 0.6 % (0.0-4.0); HEMATOCRIT 25.5 % (39.0-51.0); HEMO FLAGS DIFF FINAL; LYMPH % 3.2 % (9.0-44.0); LYMPHOCYTE # 0.5 TH/MM3 (1.0-4.8); MEAN CELL VOLUME 87.8 FL (80.0-100.0); MEAN CORPUSCULAR HEMOGLOBIN 28.8 PG (27.0-34.0); MEAN CORPUSCULAR HGB CONC 32.8 % (32.0-36.0); MONO % 7.1 % (0.0-8.0); NEUT % 88.8 % (16.0-70.0); PLATELET COUNT 262 TH/MM3 (150-450); RED BLOOD COUNT 2.91 MIL/MM3 (4.50-5.90); RED CELL DISTRIBUTION WIDTH 18.5 % (11.6-17.2); WHITE BLOOD COUNT 16.8 TH/MM3 (4.0-11.0)
[2016-11-04 05:15] LABS: BICARBONATE 26.1 MEQ/L (21.0-32.0); POTASSIUM 3.8 MEQ/L (3.5-5.1)
[2016-11-04] MEDS: INSULIN ASPART SUPPLEMENTAL SCALE SQ SCH ×4 (07:00→20:40)
[2016-11-04 07:38] VITALS: O2SAT 99
[2016-11-04 08:00] VITALS: BP_SYST 186; BP_SYST 192; BP_DIAS 72; BP_DIAS 81; PULSE 65; PULSE 92; RESP 18; TEMP 98; TEMP 98.1; O2SAT 95; O2SAT 99
[2016-11-04] MEDS ORDERED: INSULIN ASPART 1,000 UNITS/10 ML VIAL SQ SCH (08:00)
[2016-11-04] MEDS: ASPIRIN 81 MG CHEW TAB CHEW SCH (08:17)
[2016-11-04] MEDS: SULFAMETHOXAZOLE-TRIMETHOPRIM DS 800-160 MG TAB PO SCH (08:17)
[2016-11-04] MEDS: SEVELAMER CARBONATE 800 MG TAB PO SCH ×3 (08:17→17:24)
[2016-11-04] MEDS: VITAMIN B CMPLX/VITC/FOLIC AC CAP PO SCH (08:17)
[2016-11-04] MEDS: CLOPIDOGREL 75 MG TAB PO SCH (08:17)
[2016-11-04] MEDS: MULTIVITAMINS/MINERALS THERAPEUTIC TAB PO SCH (08:18)
[2016-11-04] MEDS: PRIMIDONE 50 MG TAB PO SCH ×3 (08:18→17:23)
[2016-11-04] MEDS: ASCORBIC ACID 500 MG TAB PO SCH (08:18)
[2016-11-04] MEDS: LACTOBACILLUS ACIDOPHILUS TAB PO SCH ×3 (08:18→17:24)
[2016-11-04] MEDS: hydrALAZINE HCL 25 MG TAB PO SCH ×2 (08:18→20:26)
[2016-11-04] MEDS: SODIUM CHLORIDE 0.9% FLUSH 5 ML FLUSH FLUSH SCH ×2 (08:18→21:00)
[2016-11-04] MEDS: VANCOMYCIN 500 MG VIAL (FOR ORAL USE ONLY) PO SCH ×4 (08:18→20:27)
[2016-11-04] MEDS: METOPROLOL TARTRATE 25 MG TAB PO SCH ×2 (08:18→20:26)
[2016-11-04] MEDS: PANTOPRAZOLE SOD 40 MG DELAYED RELEASE TAB PO SCH (08:18)
[2016-11-04] MEDS: POTASSIUM CHLORIDE 10 MEQ CAP PO SCH (08:19)
[2016-11-04] MEDS ORDERED: INSULIN DETEMIR 100 UNITS/ML VIAL SQ SCH (09:00)
--- NOTE | 2016-11-04 09:29 | HHI.NPPN ---
Subjective General Problems: Anemia, Edema Renal Failure: Chronic, End Stage Renal Disease History of Present Illness 81-year-old male with past medical history of hypertension, ischemic heart disease, peripheral vascular disease, end-stage renal disease on hemodialysis three times per week, diabetes mellitus, history of cerebrovascular accident, chronic anemia who was admitted with peripheral vascular disease and ischemia of the left BKA stump. I was called to see the patient for the management of dialysis. The patient has been on hemodialysis Thursday, and Thursday. Additional Remarks Patient is alert, no SOB, has mild left leg pain. Objective Data Data 11/03/16 11/04/16 19:00 07:00 Intake Total 510 ml 480 ml Output Total 50 ml Balance 460 ml 480 ml Intake Oral 60 ml 480 ml IV Total 0 ml Packed Cells 250 ml Other 200 ml Output Estimated Blood Loss 50 ml # Voids 3 # Bowel Movements 1 3 Vital Signs Date Time Temp Pulse Resp B/P Pulse Ox O2 Delivery O2 Flow Rate FiO2 11/04/16 08:00 98.0 65 18 192/81 95 11/04/16 07:38 99 Nasal Cannula 2.00 11/04/16 00:00 100.2 75 17 151/69 97 11/03/16 20:00 97.2 82 17 166/74 100 11/03/16 16:00 97.4 84 19 161/68 90 11/03/16 15:34 98.9 80 13 140/59 99 Nasal Cannula 2 11/03/16 15:00 78 14 138/67 97 Nasal Cannula 2 11/03/16 14:00 76 12 144/66 99 Nasal Cannula 2 11/03/16 13:30 72 19 134/63 97 Nasal Cannula 2 11/03/16 13:15 73 20 127/56 97 Nasal Cannula 2 11/03/16 13:00 72 19 125/53 98 Nasal Cannula 2 11/03/16 12:45 71 17 121/57 97 Nasal Cannula 2 11/03/16 12:30 70 16 115/53 99 Nasal Cannula 2 11/03/16 12:25 99.2 69 15 111/53 99 Simple Mask 6 -: 11/04/16 0336 11/04/16 0336 Microbiology 11/03/16 Gram Stain - Final, Resulted 11/03/16 Wound Culture, Resulted Pending 11/03/16 Acid Fast Stain, Received Pending 11/03/16 Mycobacterial Culture, Received Pending 11/03/16 Fungal Smear - Final, Resulted NO FUNGAL ELEMENTS SEEN. 11/03/16 Fungal Culture, Resulted Pending Physical Exam General Appearance: No Acute Distress, Comfortable Throat Throat Exam: Oral Mucosa [place] & Moist Neck Neck Exam: Neck Supple Pulmonary Resp Exam: Clear Bilaterally, Breath Sounds Equal, No Distress, Decreased Bases Cardiology CV Exam: Regular, Normal Sinus Rhythm Gastrointestinal/Abdomen GI Exam: Soft, Non-Tender, Bowel Sounds Present Extremeties Extremities Exam: Trace Edema (Rt. leg, left AKA.) Neurologic Neuro Exam: Alert, Awake, Oriented Psychiatric Psych Exam: Appropriate Responses Assessment/Plan Assessment Summary: Anemia of CKD, Hypertension, End Stage Renal Disease Problem List: (1) HTN (hypertension) (2) GERD (gastroesophageal reflux disease) (3) ESRD (end stage renal disease) (4) Diabetes mellitus (5) Anemia secondary to renal failure (6) PVD (peripheral vascular disease) Plan Patient is post left AKA. Now the BP is slightly elevated. HD to be done today. Hgb. is stable, Epogen with HD. Follow Hgb. and transfuse if needed. Ruth Ann Malone MD Nov 04, 2016 09:29
[2016-11-04 12:00] VITALS: BP 151/66; PULSE 80; RESP 17; TEMP 98.6; O2SAT 94
[2016-11-04] MEDS: EPOETIN ALFA 10,000 UNITS/ML VIAL IV PRN (13:33)
--- NOTE | 2016-11-04 15:36 | MP ---
cc: MARTIR MENDOZA DATE OF SURGERY: 11/03/2016 PREOPERATIVE DIAGNOSIS Necrotic left below-knee amputation wound. POSTOPERATIVE DIAGNOSIS Necrotic left below-knee amputation wound. PROCEDURE Left above-knee amputation. SURGEON Martir Mendoza ENGINE EMISSION TECHNICIAN Javier Berkowitz. ANESTHESIA Procedure done under femoral nerve block with MAC/ketamine anesthesia. IV FLUIDS 200 cc of crystalloid and one unit of packed red blood cells. ESTIMATED BLOOD LOSS 50 cc. URINE OUTPUT Not calculated. COMPLICATIONS None. DISPOSITION To PACU. DETAILS OF PROCEDURE The patient's left leg was prepped and draped in a sterile fashion after being under anesthesia. The patient did have a history of C. difficile from the nursing facility which we were made aware of. We gave the patient one gram of IV vancomycin preoperatively and then also gave him 500 mg of Flagyl IV. We used an Esmarch bandage around the left lower extremity and then increased the tourniquet to 200 mmHg. We made a fishmouth incision above the level of the knee with a scalpel and electrocautery. I dissected down through the subcutaneous tissue with electrocautery and used sharp scissors as needed. I tied off and divided the saphenous medially as well as the superficial femoral vessels and the sciatic nerve. I divided through all the other tissues with electrocautery. I used a periosteal bone elevator to remove the soft tissue over the left femur. I used 0 suture ligatures and 0 ties as well as 2-0 ties as needed for these vessels. I used an oscillating saw to cut through the left femur and used a rasp in order to smooth the bone edges. I closed in layers with interrupted 2-0 and 3-0 Vicryl absorbable sutures and I used roland for the skin. I placed Xeroform, 4x4s, and Ioban dressing over the left AKA stump and then padded the stump with 4x4s and then used an Tyron bandage around it. The patient tolerated the procedure well. Martir Mendoza DO RM/GARDENIA /12:12 PM /3:[address] [facility]
[2016-11-04 16:00] VITALS: BP 128/57; PULSE 86; RESP 18; TEMP 97.7; O2SAT 97
--- NOTE | 2016-11-04 17:40 | HHI.PR ---
Subjective Remarks Follow-up for status post left AKA, C. difficile colitis, ESRD. Patient is currently doing well. His not very talkative and trying to eat dinner. Per nursing staff, patient has had multiple bowel movements today but stool appears to be more formed. No fever or chills. Objective Vitals Vital Signs Date Time Temp Pulse Resp B/P Pulse Ox O2 Delivery O2 Flow Rate FiO2 11/04/16 16:00 97.7 86 18 128/57 97 11/04/16 16:00 97.7 86 18 128/57 97 11/04/16 12:00 98.6 80 17 151/66 94 11/04/16 08:00 98.1 92 18 186/72 99 11/04/16 07:38 99 Nasal Cannula 2.00 11/04/16 00:00 100.2 75 17 151/69 97 11/03/16 20:00 97.2 82 17 166/74 100 I/O 11/03/16 11/03/16 11/03/16 11/04/16 11/04/16 11/04/16 07:00 15:00 23:00 07:00 15:00 23:00 Intake Total 510 ml 240 ml 240 ml 535 ml Output Total 50 ml 725 ml Balance 460 ml 240 ml 240 ml -190 ml Intake Oral 60 ml 240 ml 240 ml 535 ml IV Total 0 ml Packed Cells 250 ml Other 200 ml Output Urine Total 125 ml Hemodialysis 600 ml Estimated Blood Loss 50 ml # Voids 1 2 2 # Bowel Movements 1 1 2 3 Result Diagram: 11/04/16 0336 11/04/16 0336 Imaging Last Impressions Chest X-Ray 11/03/16 0000 Signed Impressions: Service Date/Time: Thursday, November 03, 2016 08:06 - CONCLUSION: Spectrum of findings characteristic of developing CHF since the September 2016 exam. Milad Tamez MD Objective Remarks GENERAL: Alert, NAD. SKIN: Warm and dry. HEAD: Normocephalic. EYES: No scleral icterus. No injection or drainage. NECK: Supple, trachea midline. No JVD or lymphadenopathy. CARDIOVASCULAR: Regular rate and rhythm without murmurs, gallops, or rubs. RESPIRATORY: Breath sounds equal bilaterally. No accessory muscle use. GASTROINTESTINAL: Abdomen soft, non-tender, nondistended. MUSCULOSKELETAL: No cyanosis, or edema. Left AKA. Black eschar on the right heel. BACK: Nontender without obvious deformity. No CVA tenderness. Procedures Left above-knee amputation. 11/03/2016. A/P Problem List: (1) GERD (gastroesophageal reflux disease) ICD Code: K21.9 Status: Chronic (2) ESRD (end stage renal disease) ICD Code: N18.6 Status: Chronic (3) Diabetes mellitus ICD Code: E11.9 Status: Chronic (4) Impaired mobility and activities of daily living ICD Code: Z74.09 Status: Acute (5) Diabetic infection of right foot ICD Code: E11.69 Status: Acute (6) PVD (peripheral vascular disease) ICD Code: I73.9 Status: Chronic (7) Status post above knee amputation of left lower extremity ICD Code: Z89.612 Status: Acute (8) HTN (hypertension) ICD Code: I10 Status: Chronic (9) Anemia ICD Code: D64.9 Status: Acute Assessment and Plan Patient is an 80-year-old male with primary medical history of insulin- dependent diabetes, end-stage renal disease on hemodialysis, HTN, 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 Recently discharged from [facility] 10/08/16, post left BKA. Status post left AKA - done by Dr. Isbell Right heel eschar - Patient was given vancomycin IV and Ancef - Started on Bactrim 3 days ago. Continue Bactrim until dose completed. - Wound care recommendations appreciated with regards to right heel. - Continue Plavix, Aspirin. C. difficile - WBC 16.1 - Continue vancomycin 125 mg by mouth 4 times a day 14 days - Continue Lactinex 3 times a day Developing CHF on chest x-ray - continue O2 nasal cannula Hypertension - Continue Bumex - continue Hydralazine 25mg BID, Amlodipine 10mg Qday. End-stage renal disease on hemodialysis - arrange for hemodialysis - Nephrology following. DM - insulin-dependent - Hold off on prandial insulin. Will do insulin sliding scale for now - Continue Levemir - will reduce from 12 to 10 units Qday. - Monitor Accu-Cheks. Monitor for hypoglycemia. Full code. SCDs. When okay with vascular surgery, we can start heparin SQ. Ivon Lagunas DO Nov 04, 2016 5:40 pm
[2016-11-04 20:00] VITALS: BP 132/52; PULSE 87; RESP 18; TEMP 102; O2SAT 98
[2016-11-04] MEDS: BUMETANIDE 1 MG TAB PO SCH (20:22)
[2016-11-05] VITALS (7 sets, daily range): BP systolic 115–139; BP diastolic 46–56; PULSE 70–93; RESP 18–20; TEMP 97.5–100.4; O2SAT 95–100
[2016-11-05] MEDS: INSULIN ASPART SUPPLEMENTAL SCALE SQ SCH ×4 (05:57→20:28)
[2016-11-05] MEDS ORDERED: INSULIN DETEMIR 100 UNITS/ML VIAL SQ SCH (09:00)
[2016-11-05] MEDS: METOPROLOL TARTRATE 25 MG TAB PO SCH ×2 (09:20→20:27)
[2016-11-05] MEDS: MULTIVITAMINS/MINERALS THERAPEUTIC TAB PO SCH (09:20)
[2016-11-05] MEDS: ASPIRIN 81 MG CHEW TAB CHEW SCH (09:21)
[2016-11-05] MEDS: LACTOBACILLUS ACIDOPHILUS TAB PO SCH ×3 (09:21→17:23)
[2016-11-05] MEDS: hydrALAZINE HCL 25 MG TAB PO SCH ×2 (09:22→20:27)
[2016-11-05] MEDS: PANTOPRAZOLE SOD 40 MG DELAYED RELEASE TAB PO SCH (09:22)
[2016-11-05] MEDS: CLOPIDOGREL 75 MG TAB PO SCH (09:22)
[2016-11-05] MEDS: POTASSIUM CHLORIDE 10 MEQ CAP PO SCH (09:22)
[2016-11-05] MEDS: SULFAMETHOXAZOLE-TRIMETHOPRIM DS 800-160 MG TAB PO SCH (09:22)
[2016-11-05] MEDS: VITAMIN B CMPLX/VITC/FOLIC AC CAP PO SCH (09:22)
[2016-11-05] MEDS: SEVELAMER CARBONATE 800 MG TAB PO SCH ×3 (09:22→17:23)
[2016-11-05] MEDS: ASCORBIC ACID 500 MG TAB PO SCH (09:22)
[2016-11-05] MEDS: PRIMIDONE 50 MG TAB PO SCH ×3 (09:22→17:23)
[2016-11-05] MEDS: VANCOMYCIN 500 MG VIAL (FOR ORAL USE ONLY) PO SCH ×4 (09:23→20:27)
[2016-11-05] MEDS: SODIUM CHLORIDE 0.9% FLUSH 5 ML FLUSH FLUSH SCH ×2 (09:23→20:27)
--- NOTE | 2016-11-05 11:10 | HHI.NPPN ---
Subjective General Problems: Anemia, Edema Renal Failure: Chronic, End Stage Renal Disease History of Present Illness 81-year-old male with past medical history of hypertension, ischemic heart disease, peripheral vascular disease, end-stage renal disease on hemodialysis three times per week, diabetes mellitus, history of cerebrovascular accident, chronic anemia who was admitted with peripheral vascular disease and ischemia of the left BKA stump. I was called to see the patient for the management of dialysis. The patient has been on hemodialysis Thursday, and Thursday. Additional Remarks Patient is alert, left leg pain is better. Objective Data Data 11/04/16 11/05/16 19:00 07:00 Intake Total 535 ml 120 ml Output Total 725 ml Balance -190 ml 120 ml Intake Oral 535 ml 120 ml IV Total 0 ml Output Urine Total 125 ml Hemodialysis 600 ml # Voids 2 0 # Bowel Movements 3 1 Vital Signs Date Time Temp Pulse Resp B/P Pulse Ox O2 Delivery O2 Flow Rate FiO2 11/05/16 08:00 98.8 92 18 139/56 95 11/05/16 04:00 99.6 11/05/16 00:00 100.4 93 18 126/50 98 11/04/16 20:00 102.0 87 18 132/52 98 11/04/16 18:18 Nasal Cannula 2.00 11/04/16 16:00 97.7 86 18 128/57 97 11/04/16 16:00 97.7 86 18 128/57 97 11/04/16 12:00 98.6 80 17 151/66 94 -: 11/04/16 0336 11/04/16 0336 Physical Exam General Appearance: No Acute Distress, Comfortable Throat Throat Exam: Oral Mucosa [place] & Moist Neck Neck Exam: Neck Supple Pulmonary Resp Exam: Clear Bilaterally, Breath Sounds Equal, No Distress, Decreased Bases Cardiology CV Exam: Regular, Normal Sinus Rhythm Gastrointestinal/Abdomen GI Exam: Soft, Non-Tender, Bowel Sounds Present Extremeties Extremities Exam: Trace Edema (Rt. leg, left AKA.) Neurologic Neuro Exam: Alert, Awake, Oriented Psychiatric Psych Exam: Appropriate Responses Assessment/Plan Assessment Summary: Anemia of CKD, Hypertension, End Stage Renal Disease Problem List: (1) HTN (hypertension) (2) GERD (gastroesophageal reflux disease) (3) ESRD (end stage renal disease) (4) Diabetes mellitus (5) Anemia secondary to renal failure (6) PVD (peripheral vascular disease) Plan Patient is post left AKA. BP is better controlled. Hgb. is stable, Epogen with HD. Follow Hgb. and transfuse if needed. HD will be in AM. Ruth Ann Malone MD Nov 05, 2016 11:09
--- NOTE | 2016-11-05 16:36 | HHI.PR ---
Subjective Remarks Follow-up for status post left AKA, C. difficile colitis, ESRD. Patient is currently doing well. No fever or chills. Family members at bedside. Diarrhea is improving. Objective Vitals Vital Signs Date Time Temp Pulse Resp B/P Pulse Ox O2 Delivery O2 Flow Rate FiO2 11/05/16 11:55 97.5 70 20 130/46 100 11/05/16 08:00 98.8 92 18 139/56 95 11/05/16 04:00 99.6 11/05/16 00:00 100.4 93 18 126/50 98 11/04/16 20:00 102.0 87 18 132/52 98 11/04/16 18:18 Nasal Cannula 2.00 I/O 11/04/16 11/04/16 11/04/16 11/05/16 11/05/16 11/05/16 07:00 15:00 23:00 07:00 15:00 23:00 Intake Total 360 ml 535 ml 0 ml 120 ml 520 ml Output Total 725 ml 400 ml Balance 360 ml -190 ml 0 ml 120 ml 120 ml Intake Oral 360 ml 535 ml 120 ml 520 ml IV Total 0 ml Output Urine Total 125 ml 400 ml Hemodialysis 600 ml # Voids 3 2 0 # Bowel Movements 2 3 1 0 Result Diagram: 11/04/16 0336 11/04/16 0336 Imaging Last Impressions Chest X-Ray 11/03/16 0000 Signed Impressions: Service Date/Time: Thursday, November 03, 2016 08:06 - CONCLUSION: Spectrum of findings characteristic of developing CHF since the September 2016 exam. Milad Tamez MD Objective Remarks GENERAL: Alert, NAD. SKIN: Warm and dry. HEAD: Normocephalic. EYES: No scleral icterus. No injection or drainage. NECK: Supple, trachea midline. No JVD or lymphadenopathy. CARDIOVASCULAR: Regular rate and rhythm without murmurs, gallops, or rubs. RESPIRATORY: Breath sounds equal bilaterally. No accessory muscle use. GASTROINTESTINAL: Abdomen soft, non-tender, nondistended. MUSCULOSKELETAL: No cyanosis, or edema. Left AKA. Black eschar on the right heel. BACK: Nontender without obvious deformity. No CVA tenderness. Procedures Left above-knee amputation. 11/03/2016. A/P Problem List: (1) GERD (gastroesophageal reflux disease) ICD Code: K21.9 Status: Chronic (2) ESRD (end stage renal disease) ICD Code: N18.6 Status: Chronic (3) Diabetes mellitus ICD Code: E11.9 Status: Chronic (4) Impaired mobility and activities of daily living ICD Code: Z74.09 Status: Acute (5) Diabetic infection of right foot ICD Code: E11.69 Status: Acute (6) PVD (peripheral vascular disease) ICD Code: I73.9 Status: Chronic (7) Status post above knee amputation of left lower extremity ICD Code: Z89.612 Status: Acute (8) HTN (hypertension) ICD Code: I10 Status: Chronic (9) Anemia ICD Code: D64.9 Status: Acute Assessment and Plan Patient is an 80-year-old male with primary medical history of insulin- dependent diabetes, end-stage renal disease on hemodialysis, HTN, 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 Recently discharged from [facility] 10/08/16, post left BKA. Status post left AKA - done by Dr. Isbell Right heel eschar - Patient was given vancomycin IV and Ancef - Started on Bactrim 3 days ago. Continue Bactrim until dose completed. - Wound care recommendations appreciated with regards to right heel. - Continue Plavix, Aspirin. C. difficile colitis - WBC 16.1 - Continue vancomycin 125 mg by mouth 4 times a day 14 days - Continue Lactinex 3 times a day - BMP, CBC on 11/07/2016. Developing CHF on chest x-ray - continue O2 nasal cannula Hypertension - Continue Bumex - continue Hydralazine 25mg BID, Amlodipine 10mg Qday. End-stage renal disease on hemodialysis - arrange for hemodialysis - Nephrology following. DM - insulin-dependent - Continue sliding scale for now - Continue Levemir at his home dose 12 units QHS. - Monitor Accu-Cheks. Monitor for hypoglycemia. Full code. SCDs. When okay with vascular surgery, we can start heparin SQ. Ivon Lagunas DO Nov 05, 2016 4:36 pm
[2016-11-05] MEDS: BUMETANIDE 1 MG TAB PO SCH (20:27)
[2016-11-06] MEDS: INSULIN ASPART SUPPLEMENTAL SCALE SQ SCH ×4 (06:31→22:12)
[2016-11-06 08:00] VITALS: BP 131/53; PULSE 72; RESP 18; TEMP 98.3; O2SAT 100
[2016-11-06] MEDS: METOPROLOL TARTRATE 25 MG TAB PO SCH ×2 (09:00→21:05)
[2016-11-06] MEDS: hydrALAZINE HCL 25 MG TAB PO SCH ×2 (09:00→21:04)
[2016-11-06] MEDS: CLOPIDOGREL 75 MG TAB PO SCH (09:05)
[2016-11-06] MEDS: VITAMIN B CMPLX/VITC/FOLIC AC CAP PO SCH (09:05)
[2016-11-06] MEDS: SEVELAMER CARBONATE 800 MG TAB PO SCH ×3 (09:05→18:11)
[2016-11-06] MEDS: PRIMIDONE 50 MG TAB PO SCH ×3 (09:05→18:11)
[2016-11-06] MEDS: MULTIVITAMINS/MINERALS THERAPEUTIC TAB PO SCH (09:05)
[2016-11-06] MEDS: POTASSIUM CHLORIDE 10 MEQ CAP PO SCH (09:05)
[2016-11-06] MEDS: ASPIRIN 81 MG CHEW TAB CHEW SCH (09:05)
[2016-11-06] MEDS: PANTOPRAZOLE SOD 40 MG DELAYED RELEASE TAB PO SCH (09:05)
[2016-11-06] MEDS: LACTOBACILLUS ACIDOPHILUS TAB PO SCH ×3 (09:05→18:11)
[2016-11-06] MEDS: SULFAMETHOXAZOLE-TRIMETHOPRIM DS 800-160 MG TAB PO SCH (09:05)
[2016-11-06] MEDS: VANCOMYCIN 500 MG VIAL (FOR ORAL USE ONLY) PO SCH ×4 (09:06→21:04)
[2016-11-06] MEDS: SODIUM CHLORIDE 0.9% FLUSH 5 ML FLUSH FLUSH SCH ×2 (09:06→21:04)
[2016-11-06] MEDS: INSULIN DETEMIR 100 UNITS/ML VIAL SQ SCH (09:06)
[2016-11-06] MEDS: ASCORBIC ACID 500 MG TAB PO SCH (09:06)
[2016-11-06 12:00] VITALS: BP 119/50; PULSE 72; RESP 18; TEMP 98; O2SAT 100
[2016-11-06 16:00] VITALS: BP 110/50; PULSE 74; RESP 18; TEMP 97.4; O2SAT 93
--- NOTE | 2016-11-06 17:00 | HHI.NPPN ---
Subjective General Problems: Anemia, Edema Renal Failure: Chronic, End Stage Renal Disease History of Present Illness 81-year-old male with past medical history of hypertension, ischemic heart disease, peripheral vascular disease, end-stage renal disease on hemodialysis three times per week, diabetes mellitus, history of cerebrovascular accident, chronic anemia who was admitted with peripheral vascular disease and ischemia of the left BKA stump. I was called to see the patient for the management of dialysis. The patient has been on hemodialysis Thursday, and Thursday. Additional Remarks Patient is alert, pain is better, no SOB, with nasal cannula. Objective Data Data 11/05/16 11/06/16 19:00 07:00 Intake Total 520 ml 360 ml Output Total 600 ml 0 ml Balance -80 ml 360 ml Intake Oral 520 ml 360 ml Output Urine Total 600 ml 0 ml # Voids 1 # Bowel Movements 0 2 Vital Signs Date Time Temp Pulse Resp B/P Pulse Ox O2 Delivery O2 Flow Rate FiO2 11/06/16 12:00 98.0 72 18 119/50 100 11/06/16 08:00 98.3 72 18 131/53 100 11/05/16 23:47 98.4 75 18 129/54 100 11/05/16 20:00 98.6 80 18 115/50 97 11/05/16 18:56 Nasal Cannula 2.00 -: 11/04/16 0336 11/04/16 0336 Physical Exam General Appearance: No Acute Distress, Comfortable Throat Throat Exam: Oral Mucosa [place] & Moist Neck Neck Exam: Neck Supple Pulmonary Resp Exam: Clear Bilaterally, Breath Sounds Equal, No Distress, Decreased Bases Cardiology CV Exam: Regular, Normal Sinus Rhythm Gastrointestinal/Abdomen GI Exam: Soft, Non-Tender, Bowel Sounds Present Extremeties Extremities Exam: Trace Edema (Rt. leg, left AKA.) Neurologic Neuro Exam: Alert, Awake, Oriented Psychiatric Psych Exam: Appropriate Responses Assessment/Plan Assessment Summary: Anemia of CKD, Hypertension, End Stage Renal Disease Problem List: (1) HTN (hypertension) (2) GERD (gastroesophageal reflux disease) (3) ESRD (end stage renal disease) (4) Diabetes mellitus (5) Anemia secondary to renal failure (6) PVD (peripheral vascular disease) Plan Patient is post left AKA. BP is better controlled. Hgb. is stable, Epogen with HD. Follow Hgb. and transfuse if needed. HD done today. Follow Hgb. Problem Qualifiers (1) HTN (hypertension): Qualified Code: I10 - Essential hypertension Ruth Ann Malone MD Nov 06, 2016 17:00
--- NOTE | 2016-11-06 18:19 | PD.VS.PN ---
Subjective Subjective/Hospital Course Patient with few complaints. Objective Vitals/I&O Date Time Temp Pulse Resp B/P Pulse Ox O2 Delivery O2 Flow Rate FiO2 11/06/16 16:00 97.4 74 18 110/50 93 11/06/16 12:00 98.0 72 18 119/50 100 11/06/16 08:00 98.3 72 18 131/53 100 11/05/16 23:47 98.4 75 18 129/54 100 11/05/16 20:00 98.6 80 18 115/50 97 11/05/16 18:56 Nasal Cannula 2.00 11/06/16 11/06/16 11/06/16 07:00 15:00 23:00 Intake Total 120 ml 480 ml Balance 120 ml 480 ml Physical Exam left AKA stump is clean and intact. Right heel eschar is stable. Right foot warm. Laboratory Date/Time Procedure Status Source Growth 11/03/16 11:33 Gram Stain - Final Complete Wound Other 11/03/16 11:33 Wound Culture - Final Complete Wound Other NO GROWTH IN 72 HRS.--AEROBICALLY OR ... 11/03/16 11:33 Fungal Smear - Final Resulted Wound Other NO FUNGAL ELEMENTS SEEN. 11/03/16 11:33 Fungal Culture Resulted Wound Other Pending 11/03/16 11:33 Acid Fast Stain - Final Resulted Wound Other NO ACID FAST BACILLI SEEN 11/03/16 11:33 Mycobacterial Culture Resulted Wound Other Pending Assessment and Plan Assessment: (1) Diabetic infection of left foot Status: Acute Plan Patient is an 81 year old male with hx of ESRD and DM. He has a healing left AKA. POD #3. Can have physical therapy with weight bearing right lower extremity and transfers. Follow up in 4 weeks for staple removal. Basic stump stocking over 4x4 of the left AKA stump. Heel protection of the right Heel wound, Has been revascularized. Follow up with Dr. Sanchez in wound care center [place], [place]. Myles Isbell DO, FACS [employer] [facility] /Myles Montalvo DO Nov 06, 2016 18:18
[2016-11-06 20:00] VITALS: BP 114/64; PULSE 72; RESP 20; TEMP 98; O2SAT 94
[2016-11-06] MEDS: BUMETANIDE 1 MG TAB PO SCH (21:04)
[2016-11-07] VITALS: BP 120/68; PULSE 68; RESP 18; TEMP 97.4; O2SAT 95
[2016-11-07 05:23] LABS: AUTOMATED NEUTROPHIL # 9.5 TH/MM3 (1.8-7.7); BASOPHIL % 0.4 % (0.0-2.0); EOSINOPHIL # 0.3 TH/MM3 (0-0.4); EOSINOPHIL % 2.6 % (0.0-4.0); HEMATOCRIT 24.3 % (39.0-51.0); HEMO FLAGS DIFF FINAL; LYMPH % 4.6 % (9.0-44.0); LYMPHOCYTE # 0.5 TH/MM3 (1.0-4.8); MEAN CELL VOLUME 87.3 FL (80.0-100.0); MEAN CORPUSCULAR HGB CONC 33.2 % (32.0-36.0); MONO % 8.4 % (0.0-8.0); PLATELET COUNT 220 TH/MM3 (150-450); RED BLOOD COUNT 2.78 MIL/MM3 (4.50-5.90); WHITE BLOOD COUNT 11.3 TH/MM3 (4.0-11.0)
[2016-11-07] MEDS: INSULIN ASPART SUPPLEMENTAL SCALE SQ SCH ×4 (05:47→22:55)
[2016-11-07 05:53] LABS: BICARBONATE 31.9 MEQ/L (21.0-32.0); POTASSIUM 3.5 MEQ/L (3.5-5.1)
[2016-11-07 08:00] VITALS: BP 154/66; PULSE 73; RESP 16; TEMP 98.1; O2SAT 97
[2016-11-07] MEDS: INSULIN DETEMIR 100 UNITS/ML VIAL SQ SCH (08:55)
[2016-11-07] MEDS: MULTIVITAMINS/MINERALS THERAPEUTIC TAB PO SCH (08:56)
[2016-11-07] MEDS: VANCOMYCIN 500 MG VIAL (FOR ORAL USE ONLY) PO SCH ×4 (08:56→20:14)
[2016-11-07] MEDS: CLOPIDOGREL 75 MG TAB PO SCH (08:56)
[2016-11-07] MEDS: PRIMIDONE 50 MG TAB PO SCH ×3 (08:57→16:59)
[2016-11-07] MEDS: hydrALAZINE HCL 25 MG TAB PO SCH ×2 (08:57→20:12)
[2016-11-07] MEDS: ASPIRIN 81 MG CHEW TAB CHEW SCH (08:57)
[2016-11-07] MEDS: ASCORBIC ACID 500 MG TAB PO SCH (08:57)
[2016-11-07] MEDS: SEVELAMER CARBONATE 800 MG TAB PO SCH ×3 (08:57→16:58)
[2016-11-07] MEDS: LACTOBACILLUS ACIDOPHILUS TAB PO SCH ×3 (08:57→16:59)
[2016-11-07] MEDS: VITAMIN B CMPLX/VITC/FOLIC AC CAP PO SCH (08:57)
[2016-11-07] MEDS: SULFAMETHOXAZOLE-TRIMETHOPRIM DS 800-160 MG TAB PO SCH (08:57)
[2016-11-07] MEDS: PANTOPRAZOLE SOD 40 MG DELAYED RELEASE TAB PO SCH (08:57)
[2016-11-07] MEDS: POTASSIUM CHLORIDE 10 MEQ CAP PO SCH (08:58)
[2016-11-07] MEDS: METOPROLOL TARTRATE 25 MG TAB PO SCH ×2 (08:58→20:13)
[2016-11-07] MEDS: SODIUM CHLORIDE 0.9% FLUSH 5 ML FLUSH FLUSH SCH ×2 (09:00→20:12)
--- NOTE | 2016-11-07 10:47 | HHI.FF ---
Face to Face Verification Diagnosis: (1) S/P BKA (below knee amputation) unilateral (2) Diabetic infection of left foot (3) HTN (hypertension) (4) ESRD (end stage renal disease) Physical Therapy Order: Evaluate and Treat Occupational Therapy Order: Evaluate and Treat Speech Therapy Order: To Improve: Speech and communication skills Home Health Nursing Order: Signs/symptoms of disease process Wound care and dressing changes Home Health Aide Order: To Assist In: Bathing and personal care I have seen patient Cullenrosalino GarciaJr raisa on 11/07/16. My clinical findings support the need for the requested home health care services because: Deconditioned w/ increased weakness I certify that my clinical findings support that this patient is homebound because: Poor cardiac reserve Ivan Jimenes MD Nov 07, 2016 10:47
[2016-11-07 12:00] VITALS: BP 135/59; PULSE 69; RESP 16; TEMP 98; O2SAT 99
--- NOTE | 2016-11-07 12:05 | HHI.PR ---
Subjective Remarks Follow-up left AKA/end-stage renal disease on hemodialysis/C. difficile colitis 11/07/16-patient seen and examined, stable and no complain. Currently afebrile and WBC trending down Objective Vitals Vital Signs Date Time Temp Pulse Resp B/P Pulse Ox O2 Delivery O2 Flow Rate FiO2 11/07/16 08:00 98.1 73 16 154/66 97 11/07/16 00:00 97.4 68 18 120/68 95 11/06/16 20:00 98.0 72 20 114/64 94 11/06/16 16:00 97.4 74 18 110/50 93 I/O 11/06/16 11/06/16 11/06/16 11/07/16 11/07/16 11/07/16 07:00 15:00 23:00 07:00 15:00 23:00 Intake Total 120 ml 480 ml 440 ml 480 ml Balance 120 ml 480 ml 440 ml 480 ml Intake Oral 120 ml 480 ml 440 ml 480 ml # Voids 1 1 4 4 # Bowel Movements 1 1 2 3 Result Diagram: 11/07/16 0500 11/07/16 0510 Imaging Last Impressions Chest X-Ray 11/03/16 0000 Signed Impressions: Service Date/Time: Thursday, November 03, 2016 08:06 - CONCLUSION: Spectrum of findings characteristic of developing CHF since the September 2016 exam. Milad Tamez MD Objective Remarks GENERAL: NAD SKIN: Warm and dry. HEAD: Normocephalic. EYES: No scleral icterus. No injection or drainage. NECK: Supple, trachea midline. No JVD or lymphadenopathy. CARDIOVASCULAR: Regular rate and rhythm without murmurs, gallops, or rubs. RESPIRATORY: Breath sounds equal bilaterally. No accessory muscle use. GASTROINTESTINAL: Abdomen soft, non-tender, nondistended. MUSCULOSKELETAL: No cyanosis, or edema. left AKA stump clean BACK: Nontender without obvious deformity. No CVA tenderness. Procedures Left above-knee amputation. 11/03/2016. A/P Problem List: (1) GERD (gastroesophageal reflux disease) ICD Code: K21.9 Status: Chronic (2) ESRD (end stage renal disease) ICD Code: N18.6 Status: Chronic (3) Diabetes mellitus ICD Code: E11.9 Status: Chronic (4) Impaired mobility and activities of daily living ICD Code: Z74.09 Status: Acute (5) Diabetic infection of right foot ICD Code: E11.69 Status: Acute (6) PVD (peripheral vascular disease) ICD Code: I73.9 Status: Chronic (7) Status post above knee amputation of left lower extremity ICD Code: Z89.612 Status: Acute (8) HTN (hypertension) ICD Code: I10 Status: Chronic (9) Anemia ICD Code: D64.9 Status: Acute Assessment and Plan 81-year-old male with Status post left AKA - done by Dr. Isbell Right heel eschar - Currently on Bactrim DS - Wound care recommendations appreciated with regards to right heel. Will follow with Dr. Isbell in 4 weeks for staple removal and with Dr. Sanchez [place] [facility] for right heel wound in the interim. Basic stump stocking over 4x4 of the left AKA stump. Heel protection of the right Heel wound - Continue Plavix, Aspirin. C. difficile colitis - WBC 16.1 - Continue vancomycin 125 mg by mouth 4 times a day 14 days - Continue Lactinex 3 times a day Developing CHF on chest x-ray - continue O2 nasal cannula Hypertension - Continue Bumex - continue Hydralazine 25mg BID, Amlodipine 10mg Qday. End-stage renal disease on hemodialysis -on hemodialysis per nephrology. Continue Renvela DM - insulin-dependent - Continue sliding scale + FSBG monitoring and Levemir 12 units QHS. Problem Qualifiers (1) HTN (hypertension): Qualified Code: I10 - Essential hypertension Ivan Jimenes MD Nov 07, 2016 12:04
--- NOTE | 2016-11-07 12:39 | HHI.NPPN ---
Subjective General Problems: Anemia, Edema Renal Failure: Chronic, End Stage Renal Disease History of Present Illness 81-year-old male with past medical history of hypertension, ischemic heart disease, peripheral vascular disease, end-stage renal disease on hemodialysis three times per week, diabetes mellitus, history of cerebrovascular accident, chronic anemia who was admitted with peripheral vascular disease and ischemia of the left BKA stump. I was called to see the patient for the management of dialysis. The patient has been on hemodialysis Thursday, and Thursday. Additional Remarks Patient is alert, pain is better, stable, no complain. Objective Data Data 11/06/16 11/07/16 19:00 07:00 Intake Total 480 ml 920 ml Balance 480 ml 920 ml Intake Oral 480 ml 920 ml # Voids 1 8 # Bowel Movements 1 5 Vital Signs Date Time Temp Pulse Resp B/P Pulse Ox O2 Delivery O2 Flow Rate FiO2 11/07/16 08:00 98.1 73 16 154/66 97 11/07/16 00:00 97.4 68 18 120/68 95 11/06/16 20:00 98.0 72 20 114/64 94 11/06/16 16:00 97.4 74 18 110/50 93 -: 11/07/16 0500 11/07/16 0510 Physical Exam General Appearance: No Acute Distress, Comfortable Throat Throat Exam: Oral Mucosa [place] & Moist Neck Neck Exam: Neck Supple Pulmonary Resp Exam: Clear Bilaterally, Breath Sounds Equal, No Distress, Decreased Bases Cardiology CV Exam: Regular, Normal Sinus Rhythm Gastrointestinal/Abdomen GI Exam: Soft, Non-Tender, Bowel Sounds Present Extremeties Extremities Exam: Trace Edema (Rt. leg, left AKA.) Neurologic Neuro Exam: Alert, Awake, Oriented Psychiatric Psych Exam: Appropriate Responses Assessment/Plan Assessment Summary: Anemia of CKD, Hypertension, End Stage Renal Disease Problem List: (1) HTN (hypertension) (2) GERD (gastroesophageal reflux disease) (3) ESRD (end stage renal disease) (4) Diabetes mellitus (5) Anemia secondary to renal failure (6) PVD (peripheral vascular disease) Plan Patient is post left AKA. BP is better controlled. Hgb. is stable, Epogen with HD. Follow Hgb. and transfuse if needed. HD done yesterday. Patient wants to go home , not SNF. HD will be in AM. Problem Qualifiers (1) HTN (hypertension): Qualified Code: I10 - Essential hypertension Ruth Ann Malone MD Nov 07, 2016 12:39
[2016-11-07 16:00] VITALS: BP 147/64; PULSE 64; RESP 18; TEMP 97.6; O2SAT 100
[2016-11-07 17:54] VITALS: O2SAT 100
[2016-11-07 20:00] VITALS: BP 152/68; PULSE 66; RESP 20; TEMP 98; O2SAT 97
[2016-11-07] MEDS: BUMETANIDE 1 MG TAB PO SCH (20:13)
[2016-11-08] VITALS: BP 144/72; PULSE 72; RESP 18; TEMP 97.8; O2SAT 95
[2016-11-08] MEDS: INSULIN ASPART SUPPLEMENTAL SCALE SQ SCH ×3 (05:02→16:00)
[2016-11-08] MEDS: SULFAMETHOXAZOLE-TRIMETHOPRIM DS 800-160 MG TAB PO SCH (07:45)
[2016-11-08] MEDS: SODIUM CHLORIDE 0.9% FLUSH 5 ML FLUSH FLUSH SCH (07:45)
[2016-11-08] MEDS: PANTOPRAZOLE SOD 40 MG DELAYED RELEASE TAB PO SCH (07:46)
[2016-11-08] MEDS: VANCOMYCIN 500 MG VIAL (FOR ORAL USE ONLY) PO SCH ×3 (07:46→13:00)
[2016-11-08] MEDS: LACTOBACILLUS ACIDOPHILUS TAB PO SCH ×2 (07:46→13:00)
[2016-11-08] MEDS: INSULIN DETEMIR 100 UNITS/ML VIAL SQ SCH (07:47)
[2016-11-08 08:00] VITALS: BP 161/68; PULSE 75; RESP 16; TEMP 97.3; O2SAT 99
[2016-11-08 08:25] VITALS: O2SAT 92
--- NOTE | 2016-11-08 10:33 | HHI.NPPN ---
Subjective General Problems: Anemia, Edema Renal Failure: Chronic, End Stage Renal Disease History of Present Illness 81-year-old male with past medical history of hypertension, ischemic heart disease, peripheral vascular disease, end-stage renal disease on hemodialysis three times per week, diabetes mellitus, history of cerebrovascular accident, chronic anemia who was admitted with peripheral vascular disease and ischemia of the left BKA stump. I was called to see the patient for the management of dialysis. The patient has been on hemodialysis Thursday, and Thursday. Additional Remarks Patient is alert, seen during HD, no complain. Objective Data Data 11/07/16 11/08/16 19:00 07:00 Intake Total 360 ml 620 ml Balance 360 ml 620 ml Intake Oral 360 ml 620 ml # Voids 3 7 # Bowel Movements 6 3 Vital Signs Date Time Temp Pulse Resp B/P Pulse Ox O2 Delivery O2 Flow Rate FiO2 11/08/16 08:25 2.00 11/08/16 08:00 97.3 75 16 161/68 99 11/08/16 00:00 97.8 72 18 144/72 95 11/07/16 20:00 98.0 66 20 152/68 97 11/07/16 17:54 100 Nasal Cannula 2.00 11/07/16 16:00 97.6 64 18 147/64 100 11/07/16 12:00 98.0 69 16 135/59 99 -: 11/07/16 0500 11/07/16 0510 Physical Exam General Appearance: No Acute Distress, Comfortable Throat Throat Exam: Oral Mucosa [place] & Moist Neck Neck Exam: Neck Supple Pulmonary Resp Exam: Clear Bilaterally, Breath Sounds Equal, No Distress, Decreased Bases Cardiology CV Exam: Regular, Normal Sinus Rhythm Gastrointestinal/Abdomen GI Exam: Soft, Non-Tender, Bowel Sounds Present Extremeties Extremities Exam: Trace Edema (Rt. leg, left AKA.) Neurologic Neuro Exam: Alert, Awake, Oriented Psychiatric Psych Exam: Appropriate Responses Assessment/Plan Assessment Summary: Anemia of CKD, Hypertension, End Stage Renal Disease Problem List: (1) HTN (hypertension) (2) GERD (gastroesophageal reflux disease) (3) ESRD (end stage renal disease) (4) Diabetes mellitus (5) Anemia secondary to renal failure (6) PVD (peripheral vascular disease) Plan Patient is post left AKA. BP is better controlled. Hgb. is stable, Epogen with HD. Follow Hgb. and transfuse if needed. HD now, tolerating well. BP is stable. Possible D/C soon. Problem Qualifiers (1) HTN (hypertension): Qualified Code: I10 - Essential hypertension Ruth Ann Malone MD Nov 08, 2016 10:33
[2016-11-08 12:00] VITALS: BP 131/61; PULSE 76; RESP 16; TEMP 98.2; O2SAT 97
[2016-11-08] MEDS: EPOETIN ALFA 10,000 UNITS/ML VIAL IV PRN (12:03)
[2016-11-08] MEDS: ASCORBIC ACID 500 MG TAB PO SCH (12:45)
[2016-11-08] MEDS: ASPIRIN 81 MG CHEW TAB CHEW SCH (12:45)
[2016-11-08] MEDS: PRIMIDONE 50 MG TAB PO SCH ×2 (12:46→13:00)
[2016-11-08] MEDS: SEVELAMER CARBONATE 800 MG TAB PO SCH ×2 (12:46→13:00)
[2016-11-08] MEDS: POTASSIUM CHLORIDE 10 MEQ CAP PO SCH (12:46)
[2016-11-08] MEDS: CLOPIDOGREL 75 MG TAB PO SCH (12:47)
[2016-11-08] MEDS: MULTIVITAMINS/MINERALS THERAPEUTIC TAB PO SCH (12:47)
[2016-11-08] MEDS: VITAMIN B CMPLX/VITC/FOLIC AC CAP PO SCH (12:47)
[2016-11-08] MEDS: METOPROLOL TARTRATE 25 MG TAB PO SCH (12:48)
[2016-11-08] MEDS: hydrALAZINE HCL 25 MG TAB PO SCH (12:48)
[2016-11-08] MEDS ORDERED: LIFT HOYER (13:29)
[2016-11-08] MEDS ORDERED: OXYGENTANK NAS.CANULA ×2 (13:29→14:25)
[2016-11-08] MEDS ORDERED: LACT PO (13:33)
[2016-11-08] MEDS ORDERED: HYDR-3516 PO (13:33)
[2016-11-08] MEDS ORDERED: VANC1CAP6 PO (14:19)
--- NOTE | 2016-11-08 14:19 | HHI.PR ---
Subjective Remarks Follow-up left AKA/end-stage renal disease on hemodialysis/C. difficile colitis 11/07/16-patient seen and examined, stable and no complain. Currently afebrile and WBC trending down 11/08/16-patient seen and examined, stable. Had hemodialysis today. Reports significant improvement of diarrheal episode. Objective Vitals Vital Signs Date Time Temp Pulse Resp B/P Pulse Ox O2 Delivery O2 Flow Rate FiO2 11/08/16 08:25 92 Nasal Cannula 2.00 11/08/16 08:25 2.00 11/08/16 08:00 97.3 75 16 161/68 99 11/08/16 00:00 97.8 72 18 144/72 95 11/07/16 20:00 98.0 66 20 152/68 97 11/07/16 17:54 100 Nasal Cannula 2.00 11/07/16 16:00 97.6 64 18 147/64 100 I/O 11/07/16 11/07/16 11/07/16 11/08/16 11/08/16 11/08/16 07:00 15:00 23:00 07:00 15:00 23:00 Intake Total 480 ml 360 ml 380 ml 240 ml Output Total 3000 ml Balance 480 ml 360 ml 380 ml 240 ml -3000 ml Intake Oral 480 ml 360 ml 380 ml 240 ml Hemodialysis 3000 ml # Voids 4 3 4 3 # Bowel Movements 3 6 3 0 Result Diagram: 11/07/16 0500 11/07/16 0510 Objective Remarks GENERAL: NAD SKIN: Warm and dry. HEAD: Normocephalic. EYES: No scleral icterus. No injection or drainage. NECK: Supple, trachea midline. No JVD or lymphadenopathy. CARDIOVASCULAR: Regular rate and rhythm without murmurs, gallops, or rubs. RESPIRATORY: Breath sounds equal bilaterally. No accessory muscle use. GASTROINTESTINAL: Abdomen soft, non-tender, nondistended. MUSCULOSKELETAL: No cyanosis, or edema. left AKA stump clean BACK: Nontender without obvious deformity. No CVA tenderness. Procedures Left above-knee amputation. 11/03/2016. A/P Problem List: (1) GERD (gastroesophageal reflux disease) ICD Code: K21.9 Status: Chronic (2) ESRD (end stage renal disease) ICD Code: N18.6 Status: Chronic (3) Diabetes mellitus ICD Code: E11.9 Status: Chronic (4) Impaired mobility and activities of daily living ICD Code: Z74.09 Status: Acute (5) Diabetic infection of right foot ICD Code: E11.69 Status: Acute (6) PVD (peripheral vascular disease) ICD Code: I73.9 Status: Chronic (7) Status post above knee amputation of left lower extremity ICD Code: Z89.612 Status: Acute (8) HTN (hypertension) ICD Code: I10 Status: Chronic (9) Anemia ICD Code: D64.9 Status: Acute Assessment and Plan 81-year-old male with Status post left AKA - done by Dr. Isbell Right heel eschar - Currently on Bactrim DS - Wound care recommendations appreciated with regards to right heel. Will follow with Dr. Isbell in 4 weeks for staple removal and with Dr. Sanchez [place] [facility] for right heel wound in the interim. Basic stump stocking over 4x4 of the left AKA stump. Heel protection of the right Heel wound - Continue Plavix, Aspirin. C. difficile colitis - - Continue vancomycin 125 mg by mouth 4 times a day 14 days - Continue Lactinex 3 times a day Developing CHF on chest x-ray - continue O2 nasal cannula Hypertension - Continue Bumex - continue Hydralazine 25mg BID, Amlodipine 10mg Qday. Acute hypoxia/hypoxemia: Patient will be requiring home oxygen on discharge as other alternative measures were tried and were ineffective as patient failed respiratory walk test today 11/08/16 End-stage renal disease on hemodialysis -on hemodialysis per nephrology. Continue Renvela DM - insulin-dependent - Continue sliding scale + FSBG monitoring and Levemir 12 units QHS. Problem Qualifiers (1) HTN (hypertension): Qualified Code: I10 - Essential hypertension Ivan Jimenes MD Nov 08, 2016 14:19
--- NOTE | 2016-11-08 14:27 | HHI.DS ---
Discharge Summary Admission Date Nov 03, 2016 at 07:31 Discharge Date: Nov 08, 2016 Admitting Diagnosis C. difficile, BKA stump redo (1) GERD (gastroesophageal reflux disease) ICD Code: K21.9 (2) ESRD (end stage renal disease) ICD Code: N18.6 (3) Diabetes mellitus ICD Code: E11.9 (4) Impaired mobility and activities of daily living ICD Code: Z74.09 (5) Diabetic infection of right foot ICD Code: E11.69 (6) PVD (peripheral vascular disease) ICD Code: I73.9 (7) Status post above knee amputation of left lower extremity ICD Code: Z89.612 (8) HTN (hypertension) ICD Code: I10 (9) Anemia ICD Code: D64.9 (10) Acute respiratory failure with hypoxia ICD Code: J96.01 (11) Acute hypoxemic respiratory failure ICD Code: J96.01 Procedures Left above-knee amputation. 11/03/2016. Brief History - From Admission Patient is an 80-year-old male with primary medical history of insulin- dependent diabetes, end-stage renal disease on hemodialysis, HTN, 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 Recently discharged from [facility] 10/08/16, post left BKA. He went to [facility]. His BKA wound has not healed well and developed cellulitis and some necrosis. He was started on Bactrim. He developed diarrhea a week ago and now he is positive for C. difficile. Patient today status post left AKA done by Dr. Isbell. Patient seen today. Daughter at the bedside. Reports he is doing well. On 2 L nasal cannula. Reports he started having diarrhea since last week. Right heel wound with necrotic tissue, improved according to daughter. Denies pain and discomfort. Denies SOB/ dyspnea. Denies chest pain, palpitations, headaches, dizziness. Denies fevers, chills, n/v. Denies abdominal cramping, bloating. Chest x-ray showed spectral findings characteristic of developing CHF since the September 2016 exam. Labs reviewed. WBC 16.4, H&H 7.7/22.9. B UN 36, creatinine 6.44 - end-stage renal disease on hemodialysis. CBC/BMP: 11/07/16 0500 11/07/16 0510 Significant Findings Laboratory Tests Test 11/07/16 11/07/16 05:00 05:10 White Blood Count 11.3 TH/MM3 (4.0-11.0) Red Blood Count 2.78 MIL/MM3 (4.50-5.90) Hemoglobin 8.1 GM/DL (13.0-17.0) Hematocrit 24.3 % (39.0-51.0) Neutrophils (%) (Auto) 84.0 % (16.0-70.0) Lymphocytes (%) (Auto) 4.6 % (9.0-44.0) Monocytes (%) (Auto) 8.4 % (0.0-8.0) Neutrophils # (Auto) 9.5 TH/MM3 (1.8-7.7) Lymphocytes # (Auto) 0.5 TH/MM3 (1.0-4.8) Monocytes # (Auto) 1.0 TH/MM3 (0-0.9) Blood Urea Nitrogen 33 MG/DL (7-18) Creatinine 5.15 MG/DL (0.60-1.30) Estimat Glomerular Filtration 11 ML/MIN (>89) Rate Random Glucose 115 MG/DL (74-106) Calcium Level 8.0 MG/DL (8.5-10.1) PE at Discharge GENERAL: NAD SKIN: Warm and dry. HEAD: Normocephalic. EYES: No scleral icterus. No injection or drainage. NECK: Supple, trachea midline. No JVD or lymphadenopathy. CARDIOVASCULAR: Regular rate and rhythm without murmurs, gallops, or rubs. RESPIRATORY: Breath sounds equal bilaterally. No accessory muscle use. GASTROINTESTINAL: Abdomen soft, non-tender, nondistended. MUSCULOSKELETAL: No cyanosis, or edema. left AKA stump clean BACK: Nontender without obvious deformity. No CVA tenderness. Hospital Course Patient underwent left AKA by vascular surgery. Secondary to right heel eschar , patient was started on antibiotics which he completed. Patient was treated for C. difficile and started on vancomycin by mouth. He was continued on his chronic medical conditions for hypertension, CHF. Nephrology was consulted and he continued with hemodialysis. He was placed on a sliding scale insulin and home regiment was resumed. Vitals remained stable and patient condition improved prior to discharge. He Will follow with Dr. Isbell in 4 weeks for staple removal and with Dr. Sanchez [place] [facility] care for right heel wound in the interim Pt Condition on Discharge: Fair Discharge Disposition: Disch w/ Home Health Serv Discharge Time: > 30 minutes Discharge Instructions DIET: Follow Instructions for: Diabetic Diet Activities you can perform: Regular-No Restrictions Follow up Referrals: PCP Follow-up - 1 Week Vascular Surgery - 1 Month Wound Care Clinic New Medications: Oxygen tank (Oxygen tank) 1 Ea Tank 2 LITER PERLA.CANULA CONTINUOUS Oxygen Concentrator Portable Gaseous 2 L/min via Nasal Cannula Continuous For 99 months HYPOXEMIA PREVENTION #2 CYLINDER Oxygen tank (Oxygen tank) 1 Ea Tank 2 LITER PERLA.CANULA CONTINUOUS Oxygen Concentrator Portable Gaseous 2 L/min via Nasal Cannula Continuous For 99 months HYPOXEMIA PREVENTION #2 CYLINDER Vancomycin (Vancocin) 125 Mg Cap 125 MG PO QID Infection #40 Ref 0 CAP Hydrocodone-Acetaminophen (Hydrocodone-Acetaminophen) 5-325 mg Tab 1 TAB PO Q4H PRN PAIN LESS THAN 5 #20 TAB Lactobacillus Acidophilus (Acidophilus/l-Sporogenes) 1 Tab Tab 1 TAB PO TID Infection #90 TAB Continued Medications: Amlodipine (Amlodipine) 10 Mg Tab 10 MG PO DAILY Blood Pressure Management #30 Ref 0 TAB Ascorbic Acid (Vitamin C) 1,000 Mg Tab 1000 MG PO DAILY Nutritional Supplement Ref 0 TAB Aspirin (Aspirin) 81 Mg Chew 81 MG CHEW DAILY #30 Ref 0 TAB B-Complex W/ C & Folic Acid (Nephro-Elian) 1 Tab 1 TAB PO DAILY Nutritional Supplement #30 Ref 0 TAB Bumetanide (Bumex) 1 Mg Tab 1 MG PO HS Ref 0 TAB Clopidogrel (Plavix) 75 Mg Tab 75 MG PO DAILY #30 Ref 0 TAB Hydralazine (Hydralazine) 25 Mg Tab 25 MG PO BID Take with a meal Blood Pressure Management #90 Ref 0 TAB Insulin Aspart Inj (Novolog Inj) 1,000 Unit/10 Ml Vial 2 UNITS SQ TIDAC sliding scale Blood Sugar Management #10 Ref 0 ML Insulin Detemir Inj (Levemir Inj) 1,000 unit/ 10 ML Vial 12 UNITS SQ DAILY Days 30 INJECTION Metoprolol Tartrate (Metoprolol Tartrate) 25 Mg Tab 12.5 MG PO Q12HR #60 TAB Multiple Vitamins W/ Minerals (Multivitamin Adults) 1 Tab 1 TAB PO DAILY Nutritional Supplement Ref 0 TAB Pantoprazole (Pantoprazole) 40 Mg Tab 40 MG PO DAILY Reflux #30 Ref 0 TAB Potassium Chloride ER (Potassium Chloride ER) 10 Meq Cap 10 MEQ PO DAILY Electrolyte Replacement #30 Ref 0 CAP Primidone (Mysoline) 50 Mg Tab 50 MG PO TID #90 TAB Sevelamer Carbonate (Renvela) 800 Mg Tab 800 MG PO TID Control phosphorous levels #90 Ref 0 TAB Discontinued Medications: Diphenhydramine (Benadryl Allergy) 25 Mg Tab 25 MG PO HS PRN INSOMNIA Ref 0 TAB Infant Foods (Protein Fortifier) 1 Gm/6 Ml Liq 30 ML PO HS Sulfamethoxazole-Trimethoprim (Bactrim DS) 800-160 Mg Tab 1 TAB PO DAILY Infection Ref 0 TAB Ivan Jimenes MD Nov 08, 2016 14:27 1 TAB PO DAILY Nutritional Supplement Ref 0 TAB Pantoprazole (Pantoprazole) 40 Mg Tab 40 MG PO DAILY Reflux #30 Ref 0 TAB Potassium Chloride ER (Potassium Chloride ER) 10 Meq Cap 10 MEQ PO DAILY Electrolyte Replacement #30 Ref 0 CAP Primidone (Mysoline) 50 Mg Tab 50 MG PO TID #90 TAB Sevelamer Carbonate (Renvela) 800 Mg Tab 800 MG PO TID Control phosphorous levels #90 Ref 0 TAB Discontinued Medications: Diphenhydramine (Benadryl Allergy) 25 Mg Tab 25 MG PO HS PRN INSOMNIA Ref 0 TAB Foods (Protein Fortifier) 1 Gm/6 Ml Liq 30 ML PO HS Sulfamethoxazole-Trimethoprim (Bactrim DS) 800-160 Mg Tab 1 TAB PO DAILY Infection Ref 0 TAB Ivan Jimenes MD Nov 08, 2016 14:27
== END 2016-11-08 17:32 | disposition home health service (06) | DRG 474 ==
LOC: HSDI 11-03 07:31 → N07B 11-03 15:48
PROVIDERS: ADMIT Hospitalist; ATTEND Hospitalist
PROC: 3E0T3BZ Introduction of Anesthetic Agent into Peripheral Nerves and Plexi, Percutaneous Approach (ICD-10-PCS; 2016-11-03)
PROC: 30233N1 Transfusion of Nonautologous Red Blood Cells into Peripheral Vein, Percutaneous Approach (ICD-10-PCS; 2016-11-03)
PROC: 0Y6D0Z3 Detachment at Left Upper Leg, Low, Open Approach (ICD-10-PCS; principal; 2016-11-03 10:39)
PROC: 5A1D60Z (ICD-10-PCS; 2016-11-04)
DX: T87.54 Necrosis of amputation stump, left lower extremity (principal); N18.6 End stage renal disease; J96.01 Acute respiratory failure with hypoxia; I12.0 Hypertensive chronic kidney disease with stage 5 chronic kidney disease or end stage renal disease; A04.7 Enterocolitis due to Clostridium difficile; E11.22 Type 2 diabetes mellitus with diabetic chronic kidney disease; E11.51 Type 2 diabetes mellitus with diabetic peripheral angiopathy without gangrene; Z99.2 Dependence on renal dialysis; Z79.4 Long term (current) use of insulin; Z85.46 Personal history of malignant neoplasm of prostate; Z86.73 Personal history of transient ischemic attack (TIA), and cerebral infarction without residual deficits; Z87.891 Personal history of nicotine dependence; K21.9 Gastro-esophageal reflux disease without esophagitis; I50.9 Heart failure, unspecified; D64.9 Anemia, unspecified; I25.9 Chronic ischemic heart disease, unspecified
CPT/HCPCS: 36430; 71010; 80048; 80053; 82948; 85025; 86850; 86900; 86901; 86920; 87015; 87070; 87102; 87116; 87205; 87206; 88307; 88311; 90935; 94620; 96374; J0690; J1815; J2250; J3370; J7040; J7050; P9016; Q4081

== ENCOUNTER 2017-06-19 10:08 | Day surgery (SDC) | payer MEDICARE, BC ==
[~2017-06-19] VITALS: Ht 182.9 cm; Wt 67.3 kg
[~2017-06-19 10:08] MED LIST changes: +BUME1TAB26 PO; +HYDR-3516 PO; +LACT PO; +MULT1TAB84 PO; +NEPHTAB3 PO; +OXYGENTANK NAS.CANULA; +PANT40TA3 PO; +POTA10CA PO; +SEVEL800 PO; +VANC1CAP6 PO; +VITA10007 PO
[2017-06-19] MEDS ORDERED: PRIM50TA5 PO (11:03)
[2017-06-19] MEDS ORDERED: RENATAB5 PO (11:03)
[2017-06-19] MEDS ORDERED: CHOL1CAP34 PO (11:03)
[2017-06-19] MEDS ORDERED: BUME1TAB PO (11:03)
[2017-06-19] MEDS ORDERED: HYDR-3799 PO (11:03)
[2017-06-19] MEDS ORDERED: FLOR250C PO (11:03)
[2017-06-19] MEDS ORDERED: SODIUM CHLORIDE FLUSH PRN IV FLUSH (11:15)
[2017-06-19] MEDS ORDERED: SODIUM CHLOR 0.9% 1000 ML INJ 1,000 ML IV SCH (11:15)
[2017-06-19 11:52] LABS: BASOPHIL % 0.4 % (0.0-2.0); EOSINOPHIL # 0.2 TH/MM3 (0-0.4); EOSINOPHIL % 4.3 % (0.0-4.0); HEMATOCRIT 34.1 % (39.0-51.0); HEMO FLAGS DIFF FINAL; LYMPH % 9.3 % (9.0-44.0); LYMPHOCYTE # 0.5 TH/MM3 (1.0-4.8); MEAN CELL VOLUME 94.7 FL (80.0-100.0); MEAN CORPUSCULAR HEMOGLOBIN 32.1 PG (27.0-34.0); MEAN CORPUSCULAR HGB CONC 33.9 % (32.0-36.0); MONO % 6.7 % (0.0-8.0); NEUT % 79.3 % (16.0-70.0); PLATELET COUNT 142 TH/MM3 (150-450); RED BLOOD COUNT 3.61 MIL/MM3 (4.50-5.90)
[2017-06-19 11:58] VITALS: BP 137/51; PULSE 63; RESP 18; TEMP 98.7; O2SAT 90
[2017-06-19 12:00] LABS: INTERNATIONAL NORMALIZED RATIO 1.1 RATIO; PROTHROMBIN TIME - PATIENT 11.7 SEC (9.8-11.6)
[2017-06-19 12:19] LABS: BICARBONATE 31.6 MEQ/L (21.0-32.0); POTASSIUM 3.9 MEQ/L (3.5-5.1)
[2017-06-19] MEDS ORDERED: HEPARIN-NS/PF INJ 1,000 ML ONE (13:00)
[2017-06-19] MEDS ORDERED: MIDAZOLAM HCL 5 MG/5 ML VIAL ONE (13:01)
[2017-06-19] MEDS ORDERED: HEPARIN SODIUM - IV 10,000 UNITS/10 ML VIAL ONE (13:01)
[2017-06-19] MEDS ORDERED: NITROGLYCERIN INJ 5 ML ONE (13:01)
[2017-06-19] MEDS ORDERED: IOHEXOL 350 MG/ML 50 ML BTL (for Cath Lab) OTHER ONE (13:24)
[2017-06-19] MEDS ORDERED: ONDANSETRON HCL 4 MG/2 ML VIAL ONE (13:43)
[2017-06-19] MEDS ORDERED: CLOPIDOGREL 300 MG TAB ONE (14:30)
--- NOTE | 2017-06-19 14:31 | CATHPROC ---
[employer] HIS Report Study Information Study Number Admission Scheduled Start Study Start [id number] Jun 19 2017 10:08AM 06/19/2017 Jun 19 2017 12:46PM [place] Service Cath Endovascular Study Admit Source Facility Department Other [facility] - Technical Architect Physician and Clinical Staff Initial Myles Encinas [employer] Station Engineer Lu Staples,LIZ Recorder Patrick Reno,RT(R) Scrub Martínez Ferrell,RT(R) Procedures Performed Procedure Location (Site) Vessel Name FLOWER STRIPPER SFA (right) Femoral Art Wire insertion Fem Art (left) Femoral Art Equipment Time Civil Engineering Draftsperson Description Size Mfg Part Number Used/Scraped [id number] 13:31 ANGIO-DYNAMICS OMNI FLUSH 65CM CATHETER FR 5 Used *[id number] BALLOON, LUTONIX 5 X 150 [id number] 14:11 BARD 5 X 150 Used 130CM DCB *[id number] DBP- CARDIOVASCULAR CATHETER, STEALTH SOLID 13:55 [id number] Used SYSTEMS INC. 2.0MM *[id number] CARDIOVASCULAR VPR-[id number] 13:53 WIRE, FIRM (VIPER) 335 Used SYSTEMS INC. *[id number]-502-10.0- INTRODUCER SET, 13:31 [employer]OOK [employer]. FR 5 SC-NT-U-SST Used MICROPUNCTURE, STIFFENED *[id number] 14:10 DAIG/ST. KAMER[employer] MEDICAL ANGIOSEAL, FR6 VIP FR 6 Used *[id number] BALLOON, PACIFIC PLUS 4 X 120 [id number] 14:07 [employer] 130CM Used 130CM *[id number] 49-145 13:31 [employer] WIRE, BENTSON .035 150CM 150CM Used *[id number] 13:31 [employer] PACK, CCL CUSTOM * Used *[id number] 13:31 NAMIC TUBING, HIGH PRESSURE 48" 48" Used *[id number] 13:31 NYCOMED OMNIPAQUE, 300 MG, 150ML 150ML [id number] Used 13:31 NYCOMED OMNIPAQUE, 300 MG, 50ML 50ML [id number] Used [id number] 13:31 [employer]SU MEDICAL BLANKET,WARM AIR CCL * Used *[id number] QOS113 13:31 TERUMO MEDICAL SHEATH, FR5 TERUMO (10CM) FR 5 Used *[id number] 13:34 TERUMO MEDICAL/LARISSA CATHETER, FR5 ANGLED 100CM FR 5 [id number] *[id number] Used SHEATH, FR6 PINNACLE [id number] 13:45 [employer]UM[employer] MEDICAL/LARISSA FR 6 Used DESTINATION 45CM *[id number] WIRE, ANGLE GLIDE STIFF .035 [id number] 13:31 TERUMO MEDICAL/LARISSA 260CM Used 260CM *[id number] Equipment Model, Serial, Lot Number and Expiration Data Description Model Number Serial Number Lot Number Expiration Date ANGIOSEAL, FR6 VIP [id number] 04-27-2018 BALLOON, PACIFIC PLUS 4 X 120 [id number] 04-05-2018 130CM History: Risk Factors Family History of Hypertension Dyslipidemia Previous VT Previous Heart Failure Premature CAD Yes No Yes No No Prior Valve Prior PCI Prior CABG Surgery No No No Cerebrovascular Peripheral Artery Chronic Lung On Dialysis Diabetes Diabetes Therapy Disease Disease Disease Yes Yes Yes Yes Yes Insulin History: Other Current Smoker Method Quit Packs a Day Years Used Pack Years No Cigarettes 30 Years Ago 1 30 30 Labs Hgb (g/dl) Hct (%) WBC (l/cumm) Platelets (thousands) 11.60-17.00 35.00-51.00 4.00-11.00 150.00-450.00 11.6 34.1 5 142 Glucose (mg/dl) BUN (mg/dl) Creatinine (mg/dl) BUN:Creatinine (1:x) 74.00-106.00 7.00-18.00 0.50-1.30 10.00-20.00 121 41 4.7 8.7 Na (meq/l) K (meq/l) 136.00-145.00 3.50-5.10 136 3.9 INR (PTT:PT) 0.90-1.10 1 CPK-MB (ng/ML) 0.50-3.60 Not Drawn Medication Medication Total Dose (Bolus/Oral) Medication Total Dosage/Unit 1% XYLOCAINE 10 mL FENTANYL 50 mcg HEPARIN 5000 units NTG (IC) 500 mcg PLAVIX 300 mg ZOFRAN 4 mg Medications (Bolus/Oral) Medication Time Given Dosage/Unit Administered By Reason FENTANYL 06/19/2017 1:19:15 PM 50 mcg Lu Staples 50 mcg FENTANYL given in lab by Lu Staples, RN in Right Antecubital via Peripheral IV. Ordered Myles Nicole. 1% XYLOCAINE 06/19/2017 1:26:48 PM 10 mL Myles Isbell Patient arrived on 10 mL 1% XYLOCAINE given by Myles Isbell in Left Groin via Subcutaneous. Ordered by Myles Isbell. ZOFRAN 06/19/2017 1:44:52 PM 4 mg Lu Staples 4 mg ZOFRAN given in lab by Lu Staples, LIZ in Right Antecubital via Peripheral IV. Ordered by Myles Cruz. HEPARIN 06/19/2017 1:46:04 PM 5000 units Lu Staples 5000 units HEPARIN given in lab by Lu Staples, LIZ in Right Antecubital via Peripheral IV. Ordere d by Myles Isbell. NTG (IC) 06/19/2017 2:01:32 PM 500 mcg Myles Isbell 500 mcg NTG (IC) given in lab by Myles Isbell via Intra-arterial. Ordered by Myles Isbell. PLAVIX 06/19/2017 2:35:31 PM 300 mg Lu Staples 300 mg PLAVIX given in lab by Lu Staples, LIZ via Oral. Ordered by Myles Isbell. Medication (Drip) Medication Time Given Dosage/Unit Concentration/Unit Diluent (ml) Solution IV Solutions 06/19/2017 12:58:35 PM 0 mL (IV) 500 NaCl .9 Patient arrived on IV Solutions given by Myles Isbell in Right Antecubital via Peripheral IV. Pump/ Drip Flow = 20 ml/hr using NaCl .9. Ordered by Myles Isbell. Initial Case Assessment Cardiovascular HR Rhythm NIBP Chest Pain 76 sr 158/58 0 Edema Present Skin color Skin None Normal Warm Dry Circulatory - Right Pulses Dorsalis Pedis Posterior Tibial Femoral d d 1 Scale (0,1,2,3,4,d) Circulatory - Left Pulses Dorsalis Pedis Posterior Tibial Femoral 1 Scale (0,1,2,3,4,d) Neurological State Oriented to time-place- Alert Moves all extremities person Respiration - General Respiration Rate SpO2 (%) O2 (lpm) (B/min) 18 98 0 Final Case Assessment Cardiovascular HR Rhythm NIBP Chest Pain 90 sr 175/78 0 Edema Present Skin color Skin None Normal Warm Dry Circulatory - Right Pulses Dorsalis Pedis Posterior Tibial Femoral 1 1 1 Scale (0,1,2,3,4,d) Circulatory - Left Pulses Dorsalis Pedis Posterior Tibial Femoral 1 Scale (0,1,2,3,4,d) Neurological State Oriented to time-place- Alert Moves all extremities person Respiration - General Respiration Rate SpO2 (%) O2 (lpm) (B/min) 18 96 0 Chronological Log Time Study Chronological Log 12:45:43 Patient arrived via Bed. 12:45:45 Patient Name, D.O.B, / Armband Verified By R.N. 12:45:46 Consent signed by the physician and the patient and verified by the Technical Architect staff. 12:45:47 Pre-op and post- op instructions given; patient acknowledges understanding of instructions. Vitals capture started with the following parameters, Patient=Adult, Interval=5 min, Initial Pr tgdwrd=820 mmHg, 12:56:32 Deflation Rate=5 mmHg 12:56:39 Verbal Stimulation=2 Physical Stimulation=2 Airway=2 Respiration=2 TOTAL=8. (0=absent, 1=li mited, 2=present) 12:56:48 Presedation assessment performed by Technical Architect RN. 12:56:50 Patient has been NPO for More than 6Hrs. 12:56:52 Skin Breakdown-left AKA 12:57:31 Patient Warmer Placed on the Table. 12:57:48 HR=76 bpm, VDZG=324/58 mmhg, SpO2=97.0 %, Resp=0 B/min, Zavala=2 12:58:16 A # 22 IV was noted in the Antecubital (right). Grade = 0 Patient arrived on IV Solutions given by Myles Isbell in Right Antecubital via Peripheral IV. Pump/Drip Flow = 20 12:58:35 ml/hr using NaCl .9. Ordered by Myles Isbell. 12:58:52 History and physical on the chart or being dictated. Assessment: Initial Case, HR=76 BPM, Rhythm=sr, EDHE=217/58 mmhg, Chest Pain=0, Edema=None, Col or=Normal, Skin = Warm, Dry Right Pulses: Taqueria Ped=d, Post Tib=d, Femoral=1 12:58:54 Left Pulses: Femoral=1 Neurological: State=Alert, Ox3, GUILLERMO Respiration: Resp=18 B/min, SpO2=98 %, O2=0 lpm 12:59:32 Reference ECG taken 12:59:49 Bilateral groins prepped with 2% chlorhexidine, and with a 3 min. waiting time. 13:02:14 HR=75 bpm, XUYX=948/59 mmhg, SpO2=98.0 %, Resp=3 B/min, Zavala=2 13:07:13 HR=83 bpm, PNSR=218/64 mmhg, SpO2=98.0 %, Resp=4 B/min, Zavala=2 13:12:18 HR=78 bpm, GHOA=059/56 mmhg, SpO2=98.0 %, Resp=4 B/min, Zavala=2 13:17:13 HR=77 bpm, CZVX=280/68 mmhg, SpO2=99.0 %, Resp=0 B/min, Zavala=2 50 mcg FENTANYL given in lab by Lu Staples RN in Right Antecubital via Peripheral IV. Ord ered by Sukhi, 13:19:15 Myles. 13:22:16 HR=78 bpm, AHKC=053/64 mmhg, SpO2=95.0 %, Resp=11 B/min, Zavaal=2 Time Out. Correct patient, correct procedure,correct physician, ,power injector loaded with con trast with surgical team 13:25:21 present. Time Out Concurred by MD, individual staff and MEDICAL DELIVERY DRIVER in procedure. Loaded by Argenis gilmore rn, verified by Martínez Ferrell. 13:26:24 Case Start 13:26:33 Verbal Stimulation=2 Physical Stimulation=2 Airway=2 Respiration=2 TOTAL=8. (0=absent, 1=li mited, 2=present) Patient arrived on 10 mL 1% XYLOCAINE given by Myles Isbell in Left Groin via Subcutaneous. O rdered by Sukhi, 13:26:48 Myles. 13:27:13 HR=83 bpm, PYMH=374/65 mmhg, SpO2=95.0 %, Resp=20 B/min, Zavala=2 13:30:24 Access site was Left Femoral Artery. A INTRODUCER SET, MICROPUNCTURE, STIFFENED FR 5 was advanced into the Fem Art (left) using the Percutaneous 13:31:03 technique. A INTRODUCER SET, MICROPUNCTURE, STIFFENED FR 5 was exchanged in the Fem Art (left). This was n ecessary in 13:31:34 order to accomodate a larger catheter. A OMNI FLUSH 65CM CATHETER FR 5 was advanced over a wire. OMNIPAQUE, 300 MG, 50ML 50ML was used for 13:32:06 injections. 13:32:16 HR=81 bpm, OTKB=892/58 mmhg, SpO2=96.0 %, Resp=11 B/min, Zavala=2 After removing the current catheter a CATHETER, FR5 ANGLED 100CM FR 5 was advanced over a WIRE, ANGLE GLIDE 13:34:08 STIFF .035 260CM 260CM. 13:36:04 Wire removed 13:36:16 Manual injections down right leg through 5 prydeinig glide catheter. 13:37:15 HR=81 bpm, HVRO=365/68 mmhg, SpO2=96.0 %, Resp=15 B/min, Zavala=2 13:42:14 HR=87 bpm, BAIT=189/75 mmhg, SpO2=99.0 %, Resp=13 B/min, Zavala=2 13:44:52 4 mg ZOFRAN given in lab by Lu Staples, RN in Right Antecubital via Peripheral IV. Ord ered by Myles Isbell. 13:45:29 Catheter was removed w/o difficulty 5000 units HEPARIN given in lab by Lu Staples, LIZ in Right Antecubital via Peripheral IV. Ordered by Sukhi 13:46:04 Myles. A SHEATH, FR6 PINNACLE DESTINATION 45CM FR 6 was exchanged in the Fem Art (left). This was nece ssary in order 13:46:29 to accomodate a larger catheter. 13:46:38 A WIRE, ANGLE GLIDE STIFF .035 260CM 260CM was inserted via Fem Art (left). 13:47:20 HR=85 bpm, HDYF=942/78 mmhg, SpO2=96.0 %, Resp=16 B/min, Zavala=2 13:52:21 HR=84 bpm, IWXY=529/62 mmhg, SpO2=93.0 %, Resp=15 B/min, Zavala=2 13:52:41 Activated Clotting Time Drawn 13:52:51 The previous wire was exchanged for a WIRE, FIRM (VIPER) 335. 13:55:14 Catheter was removed w/o difficulty 13:57:20 HR=83 bpm, CBLR=364/62 mmhg, SpO2=94.0 %, Resp=17 B/min, Zavala=2 13:58:01 A catheter was advanced over a wire. OMNIPAQUE, 300 MG, 50ML 50ML was used for injections. 2.0 CSI CATHETER 13:58:09 ACT (Normal Range 90-180) = 291 13:58:18 2.0 SOLID CSI CATHETER IN USE IN RIGHT SFA. 14:01:32 500 mcg NTG (IC) given in lab by Myles Isbell via Intra-arterial. Ordered by Donn Isbell 14:02:07 CSI Catheter was removed 14:02:19 TC=377 bpm, YZYJ=591/65 mmhg, SpO2=97.0 %, Resp=11 B/min, Zavala=2 14:03:09 A BALLOON, LUTONIX 5 X 150 130CM DCB 5 X 150 was inserted over WIRE, FIRM (VIPER) 335 via t he SFA (right). 14:06:26 Balloon Removed. No inflation. 14:07:14 A BALLOON, PACIFIC PLUS 4 X 120 130CM 130CM was inserted over WIRE, FIRM (VIPER) 335 via th e SFA (right). 14:07:18 HR=83 bpm, IFNE=561/67 mmhg, SpO2=91.0 %, Resp=15 B/min, Zavala=2 14:08:14 In the SFA (right) a BALLOON, PACIFIC PLUS 4 X 120 130CM 130CM was inflated to 6 atms for 3 0 seconds. 14:11:29 Balloon Removed. 14:11:35 A BALLOON, LUTONIX 5 X 150 130CM DCB 5 X 150 was inserted over WIRE, FIRM (VIPER) 335 via t he SFA (right). 14:11:50 In the SFA (right) a BALLOON, LUTONIX 5 X 150 130CM DCB 5 X 150 was inflated to 6 atms for 180 seconds. 14:12:19 HR=85 bpm, NZAT=743/66 mmhg, SpO2=93.0 %, Resp=15 B/min, Zavala=2 14:15:46 Balloon Removed. 14:16:50 Wire removed 14:18:03 HR=97 bpm, QMNU=876/78 mmhg, SpO2=96.0 %, Resp=1 B/min, Zavala=2 14:18:56 ANGIOSEAL, FR6 VIP FR 6 placement in the Fem Art (left) Assessment: Final Case, HR=90 BPM, Rhythm=sr, PBLD=532/78 mmhg, Chest Pain=0, Edema=None, Color =Normal, Skin = Warm, Dry Right Pulses: Taqueria Ped=1, Post Tib=1, Femoral=1 14:19:31 Left Pulses: Femoral=1 Neurological: State=Alert, Ox3, GUILLERMO Respiration: Resp=18 B/min, SpO2=96 %, O2=0 lpm 14:20:26 Catheter(s) removed without difficulty 14:20:32 Case End 14:20:35 No case complications noted. 14:20:37 Cine recording checked. 14:20:56 Implantable Device card placed in patient's chart. 14:21:01 Contrast Scanned 14:21:06 Sterile dressing applied to site 14:22:23 HR=91 bpm, VQLB=035/76 mmhg, SpO2=95.0 %, Resp=22 B/min, Zavala=2 14:25:56 Vitals capture stopped. 14:26:08 Patient moved to [facility] 14:35:31 300 mg PLAVIX given in lab by Lu Staples, LIZ via Oral. Ordered by Myles Isbell. End Study - Contrast Media Used In Study Contrast Total Opened (mL) Total Used (mL) Total Wasted (mL) Omnipaque 50 50 0 End Study - Maximum Contrast Load Max Contrast Load (mL) 71.6 End Study - Radiation Exposure Fluoro Time (minutes) 12.2 End Study - Patient Disposition Complications Transferred To Telemetry Bed
--- NOTE | 2017-06-19 17:31 | MA ---
cc: MYLES MENDOZA DATE: 06/19/2017. PREOPERATIVE DIAGNOSIS: Increased velocities with history of wound in right lower extremity. Increased velocity by duplex ultrasound suggesting recurrent stenosis that appeared to be significant. POSTOPERATIVE DIAGNOSIS: Increased velocities with history of wound in right lower extremity. Increased velocity by duplex ultrasound suggesting recurrent stenosis that appeared to be significant. PROCEDURES PERFORMED: 1. Right lower extremity arteriogram. 2. Atherectomy with 2.0 CSI atherectomy device and balloon angioplasty with a drug-eluting balloon, which was a 150 x 5 mm Bard Lutonix balloon. SURGEON: Myles Mendoza DO. ANESTHESIA: Moderate sedation. IV FLUIDS One liter of normal saline. ESTIMATED BLOOD LOSS: Minimal. URINE OUTPUT Not calculated. COMPLICATIONS: None. DISPOSITION: To post-anesthesia care unit. DESCRIPTION OF THE PROCEDURE IN DETAIL: The patient's left groin was prepped and draped in a sterile fashion after being under moderate sedation. I got access to the left common femoral artery using duplex ultrasound. I placed a 21 gauge needle and exchanged for a 4-Malagasy micropuncture catheter over a thin wire. I then used Seldinger technique to exchange for a 5-Malagasy sheath. I advanced an Omni flush catheter into the abdominal aorta and then selected out the right external iliac artery. I then exchanged for a glide catheter and then shot a selective right lower extremity arteriogram. My findings were that the right common femoral and profunda femoral arteries were widely patent. The right superficial femoral artery had multiple areas of at least moderate to severe stenoses in the right distal superficial femoral artery. The right popliteal artery was patent. The patient had single-vessel runoff to the peroneal artery that gave rise to the posterior tibial and dorsalis pedis arteries. I did heparinize the patient to an ACT of greater than 200 after exchanging for a 6-Malagasy, 45 cm destination sheath that I placed into the right superficial femoral artery. I then advanced a quick-cross catheter over a stiff angled Glidewire into the right popliteal artery and then exchanged for a ViperWire and then used a 2-0 atherectomy device at low and high speeds across the areas of concern. Afterwards I performed balloon angioplasty. I predilated with a 3-mm x 120-cm balloon and then used a Haakon balloon my Kihon and then I used a drug-eluting balloon for 3 minutes at 10 atmospheres of pressure which was a Bard Lutonix. It was 5 mm x 15 cm. Afterwards there was resolution of any stenotic lesions with a good flow through the right superficial femoral artery. At the end of the case, I made sure that my sheath was above the bifurcation of the proximal left superficial femoral artery and profunda femoral arteries in exchange for a 6-Malagasy Angio-Seal. There was no hematoma. The patient tolerated the procedure well and was taken to the DOCU at the end of the case. DO LAMAR Silva/DELORES /2:33 PM /5:06 PM
[2017-06-19] MEDS ORDERED: SODIUM CHLORIDE FLUSH BID IV FLUSH SCH (21:00)
== END 2017-06-19 17:13 | disposition home or self-care (01) ==
LOC: HDOC 10:08 → HDIC 10:09 → HDOC 17:13
PROVIDERS: ATTEND Surgery
DX: I70.201 Unspecified atherosclerosis of native arteries of extremities, right leg (principal); I12.9 Hypertensive chronic kidney disease with stage 1 through stage 4 chronic kidney disease, or unspecified chronic kidney disease; E11.22 Type 2 diabetes mellitus with diabetic chronic kidney disease; N18.9 Chronic kidney disease, unspecified; Z87.891 Personal history of nicotine dependence; Z79.01 Long term (current) use of anticoagulants; Z79.82 Long term (current) use of aspirin; Z79.4 Long term (current) use of insulin; Z79.899 Other long term (current) drug therapy
CPT/HCPCS: 37225; 75710; 80048; 85002; 85025; 85610; C1714; C1725; C1760; C1769; C1887; C1893; C2623; G0269; J1644; J2250; J2405; J3010; Q9967